=== PATIENT | male | born 1935 | race Caucasian/White ===

== ENCOUNTER 2018-05-08 15:14 | Inpatient (IN) ==
[2018-05-08 20:54] LABS: Baso # (Auto) 0.1 th/mm3 (0.0-0.2); Baso % (Auto) 0.7 % (0.0-2.0); Eos # (Auto) 0.1 th/mm3 (0.0-0.4); Eos % (Auto) 1.3 % (0.0-4.0); Hematocrit 36.5 % (39.0-51.0); Hemoglobin 12.4 gm/dL (13.0-17.0); Lymph # (Auto) 0.9 th/mm3 (1.0-4.8); Mean Corpuscular Hemoglobin 34.1 pg (27.0-34.0); Mean Corpuscular Volume 100.2 fL (80.0-100.0); Mean Platelet Volume 7.4 fL (7.0-11.0); Mono # (Auto) 0.5 th/mm3 (0.0-0.9); Mono % (Auto) 4.7 % (0.0-8.0); Neut # (Auto) 8.9 th/mm3 (1.8-7.7); Neut % (Auto) 84.3 % (16.0-70.0); Platelet Count 298 th/mm3 (150-450); Red Blood Count 3.65 mil/mm3 (4.50-5.90); Red Cell Distribution Width 15.3 % (11.6-17.2); White Blood Count 10.5 th/mm3 (4.0-11.0)
--- NOTE | 2018-05-08 21:02 | XR ---
EXAM DATE: 05/08/2018 8:33 PM EDT AGE/SEX: 82 years / Male INDICATIONS: . Chest pain. CLINICAL DATA: This is the patient's subsequent encounter. Patient reports that signs and symptoms h ave been present for 3 days and indicates a pain score of 7/10. MEDICAL/SURGICAL HISTORY: Cardiovascular disease. CABG. Pacemaker. COMPARISON: No prior exams available for comparison. FINDINGS: A single AP view of the chest demonstrates the lungs to be symmetrically aerated without evidence of mass, infiltrate or effusion. The heart is moderately enlarged. Evidence of prior median sternotomy. Cardiac pacer with bipolar leads in place.. Osseous structures are intact. CONCLUSION: Cardiomegaly without radiographic evidence of congestive failure. No infiltrates seen. Electronically signed by: Evan Rodriguez MD 05/08/2018 9:00 PM EDT
[2018-05-08 21:09] LABS: Anion Gap 9 meq/L (5-15); Aspartate Aminotransferase 11 U/L (15-37); Blood Urea Nitrogen 30 mg/dL (7-18); Calcium 8.1 mg/dL (8.5-10.1); Carbon Dioxide 22.6 meq/L (21.0-32.0); Chloride 108 meq/L (98-107); Glomerular Filtration Rate 42 mL/min (>89); Glucose,Random 103 mg/dL (74-106); Magnesium 2.5 mg/dL (1.5-2.5); Potassium 4.5 meq/L (3.5-5.1); Sodium 140 meq/L (136-145)
[2018-05-08 21:10] LABS: Alanine Aminotransferase 12 U/L (12-78)
[2018-05-08 21:14] LABS: Alkaline Phosphatase 126 U/L (45-117); Total Protein 6.9 g/dL (6.4-8.2)
[2018-05-08 21:15] LABS: Activated Partial Thrombo Time 28.2 sec (24.3-30.1); Prothrombin Time 10.3 sec (9.8-11.6)
[2018-05-08] MEDS ORDERED: Sodium Chlor 0.9% Inj 250 ML IV.SIG ONE (21:22)
[2018-05-08 21:23] LABS: Creatine Kinase 84 U/L (39-308)
--- NOTE | 2018-05-08 21:44 | ED ---
HPI General Chief complaint: Recheck/Abnormal Lab/Rx Stated complaint: Poss CHF/Phy Sent Time Seen by Provider: 05/08/18 20:03 Source: patient and family Mode of arrival: wheelchair Limitations: no limitations History of Present Illness HPI narrative: 82-year-old male the presents to the ED for evaluation of dizziness and low blood pressure. Patient apparently was recently admitted to a different hospital. Apparently patient was admitted because of his dizziness and allegedly his the fibular have been going off multiple times. Patient allegedly had CPR done and was admitted to [facility]. Discharged with instructions to follow up with radio installer [employer]. patient has an appointment with Dr Aparicio to check his pacemaker and defibrillator as apparently he could need a new lead. His appoitnment is on tuesday. Patient states having chest pain since having had the CPR which he attributes to broken bones from the CPR. Per patient has been having worsening dizziness and hypotension since released from the hospital. Today symptoms worsen to the point he almost lost consciousness like the last time that put him on the hospital. Currently denies any pain or SOB. no abdominal pain. No N/V/D. Related Data Allergies Allergy/AdvReac Type Severity Reaction Status Date / Time No Known Allergies Allergy Severe Uncoded 05/23/07 15:12 Review of Systems ROS Unobtainable All other systems reviewed negative except as stated in HPI [facility] Medical History Medical History Pacemaker (Acute) Social History Social History Substance History: No History of Abuse Smoking Status: Heavy tobacco smoker Tobacco Type: Cigarettes How Often Do You Have a Drink Containing Alcohol: Never Recent Travel in [place] within the Last 8 Weeks: No Recent Out of Country Travel within the Last 8 Weeks: No Immunization History Tetanus Immunization: <5 Years Hx Influenza Vaccine This Season: Yes Exam Narrative Exam Narrative: GENERAL: Well-appearing but very anorexic SKIN: Focused skin assessment warm/dry. HEAD: Atraumatic. Normocephalic. EYES: Pupils equal and round. No scleral icterus. No injection or drainage. ENT: No nasal bleeding or discharge. Mucous membranes pink and moist. Tongue is midline. No uvula deviation. NECK: Trachea midline. No JVD. CARDIOVASCULAR: Regular rate and rhythm. No murmur appreciated. RESPIRATORY: No accessory muscle use. Clear to auscultation. Breath sounds equal bilaterally. GASTROINTESTINAL: Abdomen soft, non-tender, nondistended. Hepatic and splenic margins not palpable. MUSCULOSKELETAL: No obvious deformities. No clubbing. No cyanosis. No edema. Full range of motion of the upper and lower extremities bilaterally. 2+ pulses bilaterally. NEUROLOGICAL: Awake and alert. No obvious cranial nerve deficits. Motor grossly within normal limits. Normal speech. PSYCHIATRIC: Appropriate mood and affect; insight and judgment normal. Course Initial Documented Vital Signs Temperature 97.7 F 05/08/18 15:44 Pulse Rate 70 05/08/18 15:44 Respiratory Rate 16 05/08/18 15:44 Blood Pressure 90/55 L 05/08/18 15:44 Pulse Oximetry 97 05/08/18 15:44 Last Documented Vital Signs Temperature 97.7 F 05/08/18 15:44 Pulse Rate 69 05/08/18 20:31 Respiratory Rate 16 05/08/18 15:44 Blood Pressure 90/55 L 05/08/18 15:44 Pulse Oximetry 98 05/08/18 20:32 Medical Decision Making MDM Narrative Medical decision making narrative: 82-year-old male the presents to the ED for evaluation of dizziness and low blood pressure. Patient was properly examined and was found to have signs and symptoms of unclear etiology. Patient was found to be slightly hypotensive in triage and systolic in the 90s. He is very symptomatic with just standing. 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 Atwood as well as Dr. Randall for further evaluation of the pacemaker. Patient currently denies any other symptoms other feeling very dizzy. Labs and imaging were ordered. Case discussed with my attending Dr. Golden who agrees with plan. Labs and imaging came back essentially negative. patient very symptomatic with standing. unclear etiology but concern for cardiac versus medication side effect. My attending recommends admission. Dr Garland agreed to admission. 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 Lab Data Lab results reviewed: Yes I reviewed the patient's lab results. Lab results narrative: Troponin and CK-MB negative. BNP in the 200s Result diagrams: 05/08/18 20:25 05/08/18 20:25 Lab Results 05/08/18 05/08/18 05/08/18 Range/Units 20:25 20:25 20:25 WBC 10.5 (4.0-11.0) th/mm3 RBC 3.65 L (4.50-5.90) mil/mm3 Hgb 12.4 L (13.0-17.0) gm/dL Hct 36.5 L (39.0-51.0) % MCV 100.2 H (80.0-100.0) fL MCH 34.1 H (27.0-34.0) pg MCHC 34.0 (32.0-36.0) % RDW 15.3 (11.6-17.2) % Plt Count 298 (150-450) th/mm3 MPV 7.4 (7.0-11.0) fL Neut % (Auto) 84.3 H (16.0-70.0) % Lymph % (Auto) 9.0 (9.0-44.0) % [place] % (Auto) 4.7 (0.0-8.0) % Eos % (Auto) 1.3 (0.0-4.0) % Baso % (Auto) 0.7 (0.0-2.0) % Neut # (Auto) 8.9 H (1.8-7.7) th/mm3 Lymph # (Auto) 0.9 L (1.0-4.8) th/mm3 [place] # (Auto) 0.5 (0.0-0.9) th/mm3 Eos # (Auto) 0.1 (0.0-0.4) th/mm3 Baso # (Auto) 0.1 (0.0-0.2) th/mm3 WBC Differential . Differential Comment Auto diff final PT 10.3 (9.8-11.6) sec INR 1.0 Ratio APTT 28.2 (24.3-30.1) sec Sodium (136-145) meq/L Potassium (3.5-5.1) meq/L Chloride (98-107) meq/L Carbon Dioxide (21.0-32.0) meq/L Anion Gap (5-15) meq/L BUN (7-18) mg/dL Creatinine (0.60-1.30) mg/dL Estimated GFR (>89) mL/min Random Glucose (74-106) mg/dL Calcium (8.5-10.1) mg/dL Magnesium Cancelled Total Bilirubin (0.2-1.0) mg/dL AST (15-37) U/L ALT (12-78) U/L Alkaline Phosphatase (45-117) U/L Total Creatine Kinase Cancelled Troponin I Cancelled B-Natriuretic Peptide (0-100) pg/mL Total Protein (6.4-8.2) g/dL Albumin (3.4-5.0) g/dL 05/08/18 05/08/18 Range/Units 20:25 20:25 WBC (4.0-11.0) th/mm3 RBC (4.50-5.90) mil/mm3 Hgb (13.0-17.0) gm/dL Hct (39.0-51.0) % MCV (80.0-100.0) fL MCH (27.0-34.0) pg MCHC (32.0-36.0) % RDW (11.6-17.2) % Plt Count (150-450) th/mm3 MPV (7.0-11.0) fL Neut % (Auto) (16.0-70.0) % Lymph % (Auto) (9.0-44.0) % [place] % (Auto) (0.0-8.0) % Eos % (Auto) (0.0-4.0) % Baso % (Auto) (0.0-2.0) % Neut # (Auto) (1.8-7.7) th/mm3 Lymph # (Auto) (1.0-4.8) th/mm3 [place] # (Auto) (0.0-0.9) th/mm3 Eos # (Auto) (0.0-0.4) th/mm3 Baso # (Auto) (0.0-0.2) th/mm3 WBC Differential Differential Comment PT (9.8-11.6) sec INR Ratio APTT (24.3-30.1) sec Sodium 140 (136-145) meq/L Potassium 4.5 (3.5-5.1) meq/L Chloride 108 H (98-107) meq/L Carbon Dioxide 22.6 (21.0-32.0) meq/L Anion Gap 9 (5-15) meq/L BUN 30 H (7-18) mg/dL Creatinine 1.59 H (0.60-1.30) mg/dL Estimated GFR 42 L (>89) mL/min Random Glucose 103 (74-106) mg/dL Calcium 8.1 L (8.5-10.1) mg/dL Magnesium 2.5 Total Bilirubin 0.3 (0.2-1.0) mg/dL AST 11 L (15-37) U/L ALT 12 (12-78) U/L Alkaline Phosphatase 126 H (45-117) U/L Total Creatine Kinase 84 Troponin I Less than 0.02 L B-Natriuretic Peptide 295 H (0-100) pg/mL Total Protein 6.9 (6.4-8.2) g/dL Albumin 3.0 L (3.4-5.0) g/dL Imaging Data Attestation: I personally reviewed and interpreted this imaging study as follows : Radiologist's impression: Chest X-Ray 05/08/18 20:16 CONCLUSION: Cardiomegaly without radiographic evidence of congestive failure. No infiltrates seen. Head CT 05/08/18 21:21 CONCLUSION: 1. No acute findings in the brain. 2. Right maxillary sinus disease including air-fluid level, suggesting acute sinusitis. ECG Data Attestation: I personally reviewed and interpreted this ECG as follows: Interpretation: EKG showed ventricular and atrial paced rhythm with no sign of acute ischemia or arrhythmia read by me and attending. Ventricular rate at 69 bpm. Discharge Plan Discharge Disposition Patient Disposition: 30 Still Patient Discharge Details Diagnosis: Near syncope, Dizziness Physicians Team ED Provider: Zara Golden ED Midlevel Provider: Romaine Schultz Primary Care Provider: Cyril Gabriel Discharge Interventions Interventions: Vital Signs Last Done: 05/08/18 15:44 Status ED Status: With Doctor
--- NOTE | 2018-05-08 22:32 | CT ---
EXAM DATE: 05/08/2018 10:14 PM EDT AGE/SEX: 82 years / Male INDICATIONS: Dizziness, low blood pressure. CLINICAL DATA: This is the patient's initial encounter. Patient reports that signs and symptoms have been present for 1 day and indicates a pain score of 0/10. MEDICAL/SURGICAL HISTORY: Cardiovascular disease. Pacemaker. RADIATION DOSE: 36.76 CTDI (mGy) COMPARISON: No prior exams available for comparison. TECHNIQUE: CT of the head without contrast. Using automated exposure control and adjustment of the mA and/or kV according to patient size, radiation dose was kept as low as reasonably achievable to ob tain optimal diagnostic quality images. DICOM format image data is available electronically for revi ew and comparison. FINDINGS: Cerebrum: The ventricles are normal for age. No evidence of midline shift, mass lesion, hemorrhage or acute infarction. Physiologic calcification in the basal ganglia. No extraaxial fluid collections are seen. Posterior Fossa: The cerebellum and brainstem are intact. The 4th ventricle is midline. The cerebe llopontine angle is unremarkable. Extracranial: The visualized portion of the orbits is intact. Mucosal thickening and air-fluid level in the right maxillary sinus. Skull: The calvaria is intact. No evidence of skull fracture. CONCLUSION: 1. No acute findings in the brain. 2. Right maxillary sinus disease including air-fluid level, suggesting acute sinusitis. Electronically signed by: Evan Rodriguez MD 05/08/2018 10:31 PM EDT
--- NOTE | 2018-05-08 23:50 | P.HPIM ---
History of Present Illness Primary Care Physician: Cyril Gabriel Chief Complaint: dizziness History of Present Illness: 82-year-old male with a history of CAD, hypertension, BPH, hypothyroidism presented to the ED with complaints of dizziness and low blood pressure. Patient states 1 week ago he was admitted to [facility] for a cardiac arrest and at this time he was told there was an issue with his pacemaker leads. He was set to follow-up with Dr. Aparicio outpatient for a pacemaker revision within the next 2 days but today he felt increasingly weak with dizziness and experienced low blood pressure at home. He did not take his Entresto today due to his low blood pressure. He does complain of associated chest pressure that is worse with palpation, denies any shortness of breath, fever or chills. He states the dizziness is increased when he goes from a sitting to standing position. - Diagnosis (1) Near syncope (2) Dizziness Inpatient Certification: I certify that the inpatient services were ordered in accordance with Medicare regulations governing the order. This includes certification that hospital inpatient services are reasonable and necessary and in the case of services not specified as inpatient-only under 42 CFR 419.22(n), that they are appropriately provided as inpatient services in accordance to with the 2-midnight benchmark under 43 CFR 412.3(e) [facility] - History History Provided By: Patient - Medical History Medical History: Medical History (Last Updated 05/09/18 @ 03:55 by OSMAN Valdez) BPH (benign prostatic hyperplasia) Coronary artery disease Hypertension Hypothyroid Pacemaker - Surgical History Surgical History: Surgical History (Last Updated 05/09/18 @ 03:55 by OSMAN Valdez) H/O hernia repair Hx of CABG S/P AAA repair - Tobacco History Tobacco Use In Past 30 Days: Yes Smoking Status: Current every day smoker Tobacco Type: Cigarettes - Alcohol History How Often Do You Have a Drink Containing Alcohol: Never - Substance Use History Substance History: No History of Abuse - Travel History Recent Travel in the [place] Within the Last 8 Weeks: No Recent Travel Out of the Country Within the Last 8 Weeks: No - Immunization History Tetanus Immunization: <5 Years Hx Influenza Vaccine This Season: Yes Medications and Allergies Allergies Allergy/AdvReac Type Severity Reaction Status Date / Time No Known Allergies Allergy Severe Uncoded 05/23/07 15:12 Home Medications Medication Instructions Recorded Confirmed Type amiodarone 200 mg PO BID 05/09/18 05/09/18 History cholecalciferol (vitamin D3) 5,000 unit PO DAILY 05/09/18 05/09/18 History [Vitamin D3] clopidogrel [Plavix] 75 mg PO DAILY 05/09/18 05/09/18 History cyanocobalamin (vitamin B-12) 5,000 mcg SUBLINGUAL DAILY 05/09/18 05/09/18 History [Vitamin B-12] ferrous sulfate [iron] 325 mg PO DAILY 05/09/18 05/09/18 History hydrocodone-acetaminophen 1 tab PO Q4H PRN 05/09/18 05/09/18 History ibuprofen 600 mg PO Q4-6H PRN 05/09/18 05/09/18 History levothyroxine 150 mcg PO DAILY 05/09/18 05/09/18 History multivitamin [Multiple Vitamins] 1 tab PO DAILY 05/09/18 05/09/18 History sacubitril-valsartan [Entresto] 1 tab PO BID 05/09/18 05/09/18 History simvastatin 80 mg PO HS 05/09/18 05/09/18 History trazodone 100 mg PO HS 05/09/18 05/09/18 History Exam Vital signs: Vital Signs 05/08/18 15:44 05/08/18 20:31 05/08/18 20:32 Temperature 97.7 F Pulse Rate 70 69 Respiratory Rate 16 Blood Pressure 90/55 L Pulse Oximetry 97 98 Intake & Output 05/08/18 05/08/18 05/09/18 06:59 18:59 06:59 Weight 55.792 kg - Constitutional no acute distress - Routine HEENT Exam Head: Present: normocephalic Eye: Present: EOMI, PERRL ENT: Present: mucous membranes moist, nares patent - Routine Neck Exam Present: supple, full ROM. Absent: JVD - Routine Chest/Breast/Axilla Exam Chest wall: Present: tenderness, pacemaker - Routine Respiratory Exam Absent: accessory muscle use, rales, wheezes, crackles - Routine Cardiovascular Exam Absent: murmur, rubs Comments: Atrial paced - Routine Abdominal Exam Present: soft, normoactive bowel sounds. Absent: tenderness, distended - Routine Extremities Exam Present: full ROM, pulses intact. Absent: edema - Routine Skin Exam Present: intact, warm, normal turgor - Routine Neurological Exam Present: alert, oriented X3 Results - Labs CBC & Chem 7: 05/09/18 05:35 05/09/18 05:35 Labs: Short CBC 05/08/18 Range/Units 20:25 WBC 10.5 (4.0-11.0) th/mm3 Hgb 12.4 L (13.0-17.0) gm/dL Hct 36.5 L (39.0-51.0) % Plt Count 298 (150-450) th/mm3 BMP 05/08/18 20:25 Sodium 140 Potassium 4.5 Chloride 108 H Carbon Dioxide 22.6 BUN 30 H Creatinine 1.59 H Calcium 8.1 L Cardiac Enzymes 05/08/18 05/08/18 Range/Units 20:25 20:25 Total Creatine Kinase Cancelled 84 Troponin I Cancelled Less than 0.02 L Liver Function 05/08/18 Range/Units 20:25 Total Bilirubin 0.3 (0.2-1.0) mg/dL AST 11 L (15-37) U/L ALT 12 (12-78) U/L Alkaline Phosphatase 126 H (45-117) U/L Albumin 3.0 L (3.4-5.0) g/dL - Imaging Impressions Chest X-Ray 05/08/18 20:16 CONCLUSION: Cardiomegaly without radiographic evidence of congestive failure. No infiltrates seen. Head CT 05/08/18 21:21 CONCLUSION: 1. No acute findings in the brain. 2. Right maxillary sinus disease including air-fluid level, suggesting acute sinusitis. Caprini VTE Risk Assessment Caprini VTE Risk Assessment: Moderate/High Risk (score >= 2) Caprini Risk Assessment Model: Point Value = 1 Point Value = 2 Point Value = 3 Point Value = 5 Age 41-60 Minor surgery BMI > 25 kg/m2 Swollen legs Varicose veins or History of unexplained or recurrent spontaneous Oral contraceptives or hormone replacement Sepsis (< 1 month) Serious lung disease, including pneumonia (< 1 month) Abnormal pulmonary function Acute myocardial infarction Congestive heart failure (< 1 month) History of inflammatory bowel disease Medical patient at bed rest Age 61-74 Arthroscopic surgery Major open surgery (> 45 min) Laparoscopic surgery (> 45 min) Malignancy Confined to bed (> 72 hours) Immobilizing plaster cast Central venous access Age >= 75 History of VTE Family history of VTE Factor V Leiden Prothrombin [id number] Lupus anticoagulant Anticardiolipin antibodies Elevated serum homocysteine Heparin-induced thrombocytopenia Other congenital or acquired thrombophilia Stroke (< 1 month) Elective arthroplasty Hip, pelvis, or leg fracture Acute spinal cord injury (< 1 month) Prophylaxis Regimen: Total Risk Factor Score Risk Level Prophylaxis Regimen 0-1 Low Early ambulation 2 Moderate Order ONE of the following: *Sequential Compression Device (SCD) *Heparin 5000 units SQ BID 3-4 Higher Order ONE of the following medications: *Heparin 5000 units SQ TID *Enoxaparin/Lovenox 40 mg SQ daily (WT < 150 kg, CrCl > 30 mL/min) *Enoxaparin/Lovenox 30 mg SQ daily (WT < 150 kg, CrCl > 10-29 mL/min) *Enoxaparin/Lovenox 30 mg SQ BID (WT < 150 kg, CrCl > 30 mL/min) AND/OR *Sequential Compression Device (SCD) 5 or more Highest Order ONE of the following medications: *Heparin 5000 units SQ TID (Preferred with Epidurals) *Enoxaparin/Lovenox 40 mg SQ daily (WT < 150 kg, CrCl > 30 mL/min) *Enoxaparin/Lovenox 30 mg SQ daily (WT < 150 kg, CrCl > 10-29 mL/min) *Enoxaparin/Lovenox 30 mg SQ BID (WT < 150 kg, CrCl > 30 mL/min) AND *Sequential Compression Device (SCD) Assessment and Plan - Assessment (1) Near syncope Code(s): R55 - Syncope and collapse Status: Acute (2) Dizziness Code(s): R42 - Dizziness and giddiness Status: Acute - Plan Near syncope, dizziness, suspect due to orthostatic hypotension, and pacemaker malfunction Troponin 0.02 -Orthostatic BP ordered -Consult cardiology, Dr. Aparicio -Serial troponin and EKGs -Request records from [facility] Acute kidney injury, suspect due to dehydration -IVF for hydration, monitor for fluid overload -Trend creatinine Hypertension, chronic, currently hypotensive -Hold all home medications for hypertension once med rec is updated -Monitor vitals DVT prophylaxis: Heparin SQ Discussed Condition With: Patient and RN
[2018-05-09] MEDS ORDERED: Acetaminophen 325 MG Tablet PO PRN (00:21)
[2018-05-09] MEDS: Sod Chloride 0.9% Inj 1,000 ML IV.CONT SCH ×2 (01:25→16:13)
[2018-05-09] MEDS: Heparin - SQ 10,000 UNITS/ML Vial SQ SCH ×3 (05:55→23:20)
[2018-05-09 06:04] LABS: Hemoglobin 10.4 gm/dL (13.0-17.0); Mean Corpuscular HGB Conc 34.8 % (32.0-36.0); Mean Corpuscular Hemoglobin 34.8 pg (27.0-34.0); Mean Platelet Volume 7.3 fL (7.0-11.0); Platelet Count 267 th/mm3 (150-450); White Blood Count 7.9 th/mm3 (4.0-11.0)
[2018-05-09 06:23] LABS: Carbon Dioxide 22.2 meq/L (21.0-32.0); Potassium 4.6 meq/L (3.5-5.1)
[2018-05-09 06:28] LABS: Troponin I 0.02 ng/mL (0.02-0.05)
[2018-05-09 06:35] LABS: Total Protein 5.7 g/dL (6.4-8.2)
[2018-05-09 11:44] LABS: Creatine Kinase 68 U/L (39-308)
--- NOTE | 2018-05-09 12:08 | P.PNIM ---
Subjective Interval history: Patient reports that lightheadedness continues, worse with standing. Denies any nausea or vomiting. Reports that dull chest pain continues. Physical Exam Vital signs: Vital Signs 05/08/18 15:44 05/08/18 20:31 05/08/18 20:32 Temperature 97.7 F Pulse Rate 70 69 Respiratory Rate 16 Blood Pressure 90/55 L Pulse Oximetry 97 98 05/09/18 04:23 05/09/18 07:56 05/09/18 07:57 Temperature 98.3 F 98.5 F Pulse Rate 71 70 Respiratory Rate 16 20 Blood Pressure 114/75 127/77 119/78 Pulse Oximetry 95 05/09/18 07:58 05/09/18 08:00 Temperature 98.5 F Pulse Rate Respiratory Rate 20 Blood Pressure 118/82 127/77 Pulse Oximetry 94 L Intake & Output 05/08/18 05/09/18 05/09/18 18:59 06:59 18:59 Weight 55.792 kg Narrative: GENERAL: Patient sitting up in bed. Appears comfortable. SKIN: Warm and dry. HEAD: Normocephalic. EYES: No scleral icterus. No injection or drainage. No nystagmus. NECK: Supple, trachea midline. No JVD. CARDIOVASCULAR: Regular rate and rhythm without murmurs, gallops, or rubs. RESPIRATORY: Breath sounds equal bilaterally. No accessory muscle use. GASTROINTESTINAL: Abdomen soft, non-tender, nondistended. MUSCULOSKELETAL: No cyanosis, or edema. BACK: Nontender without obvious deformity. No CVA tenderness. Results - Labs CBC & Chem 7: 05/09/18 05:35 05/09/18 05:35 Laboratory Results - last 24 hr 05/08/18 05/08/18 05/08/18 20:25 20:25 20:25 WBC 10.5 RBC 3.65 L Hgb 12.4 L Hct 36.5 L MCV 100.2 H MCH 34.1 H MCHC 34.0 RDW 15.3 Plt Count 298 MPV 7.4 Neut % (Auto) 84.3 H Lymph % (Auto) 9.0 [place] % (Auto) 4.7 Eos % (Auto) 1.3 Baso % (Auto) 0.7 Neut # (Auto) 8.9 H Lymph # (Auto) 0.9 L [place] # (Auto) 0.5 Eos # (Auto) 0.1 Baso # (Auto) 0.1 WBC Differential . Differential Comment Auto diff final PT 10.3 INR 1.0 APTT 28.2 Sodium Potassium Chloride Carbon Dioxide Anion Gap BUN Creatinine Estimated GFR Random Glucose Calcium Prot Corrected Calcium Magnesium Cancelled Total Bilirubin AST ALT Alkaline Phosphatase Total Creatine Kinase Cancelled Troponin I Cancelled B-Natriuretic Peptide Total Protein Albumin 05/08/18 05/08/18 05/09/18 20:25 20:25 05:35 WBC RBC Hgb Hct MCV MCH MCHC RDW Plt Count MPV Neut % (Auto) Lymph % (Auto) [place] % (Auto) Eos % (Auto) Baso % (Auto) Neut # (Auto) Lymph # (Auto) [place] # (Auto) Eos # (Auto) Baso # (Auto) WBC Differential Differential Comment PT INR APTT Sodium 140 Potassium 4.5 Chloride 108 H Carbon Dioxide 22.6 Anion Gap 9 BUN 30 H Creatinine 1.59 H Estimated GFR 42 L Random Glucose 103 Calcium 8.1 L Prot Corrected Calcium Magnesium 2.5 Total Bilirubin 0.3 AST 11 L ALT 12 Alkaline Phosphatase 126 H Total Creatine Kinase 84 69 Troponin I Less than 0.02 L 0.02 B-Natriuretic Peptide 295 H Total Protein 6.9 Albumin 3.0 L 05/09/18 05/09/18 05/09/18 05:35 05:35 10:38 WBC 7.9 RBC 3.00 L Hgb 10.4 L D Hct 30.0 L MCV 100.0 MCH 34.8 H MCHC 34.8 RDW 15.0 Plt Count 267 MPV 7.3 Neut % (Auto) Lymph % (Auto) [place] % (Auto) Eos % (Auto) Baso % (Auto) Neut # (Auto) Lymph # (Auto) [place] # (Auto) Eos # (Auto) Baso # (Auto) WBC Differential Differential Comment PT INR APTT Sodium 142 Potassium 4.6 Chloride 112 H Carbon Dioxide 22.2 Anion Gap 8 BUN 27 H Creatinine 1.43 H Estimated GFR 48 L Random Glucose 80 Calcium 7.0 L* D Prot Corrected Calcium 7.7 L Magnesium Total Bilirubin AST ALT Alkaline Phosphatase Total Creatine Kinase 68 Troponin I Less than 0.02 L B-Natriuretic Peptide Total Protein 5.7 L D Albumin - Imaging Impressions Chest X-Ray 05/08/18 20:16 CONCLUSION: Cardiomegaly without radiographic evidence of congestive failure. No infiltrates seen. Head CT 05/08/18 21:21 CONCLUSION: 1. No acute findings in the brain. 2. Right maxillary sinus disease including air-fluid level, suggesting acute sinusitis. Assessment and Plan - Assessment (1) Near syncope Code(s): R55 - Syncope and collapse Status: Acute (2) Dizziness Code(s): R42 - Dizziness and giddiness Status: Acute - Plan //Near syncope, dizziness, suspect due to orthostatic hypotension, and pacemaker malfunction Troponin 0.02 -Orthostatic BP orderedunremarkable -Consult cardiology, Dr. Aparicio -Serial troponin and EKGs -Request records from [facility] = Pacemaker interrogation ordered. Outside records ordered. Await cardiology evaluation. PT eval. //Acute kidney injury, suspect due to dehydration -IVF for hydration, monitor for fluid overload -Trend creatinine = Patient reportedly on ibuprofen 600 mg every 6 hours. Will discontinue. 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 Pending PT evaluation.
--- NOTE | 2018-05-09 14:03 | US ---
EXAM DATE: 05/09/2018 1:46 PM EDT AGE/SEX: 82 years / Male INDICATIONS: Near syncope. Orthostatic lightheadedness. CLINICAL DATA: This is the patient's initial encounter. Patient reports that signs and symptoms have been present for 2 days and indicates a pain score of 0/10. MEDICAL/SURGICAL HISTORY: Hypertension. Hypothyroidism. Benign prostatic hyperplasia. Coronary artery disease. Pacemaker. CABG. Hernia repair. Abdominal aortic aneurysm repair. Pacemaker placeme nt. COMPARISON: No prior exams available for comparison. VELOCITY PARAMETERS: ICA/CCA Ratio: Right 1.0 , Left 1.7 ICA: Right 81 cm/sec, Left 107 cm/sec CCA: Right 81 cm/sec, Left 63 cm/sec ECA: Right 89 cm/sec, Left 106 cm/sec Vertebral: Right 36 cm/sec antegrade, Left 52 cm/sec antegrade FINDINGS: Right Carotid: Extensive atherosclerotic plaquing is visualized.The waveforms are within normal limi ts. Left Carotid: Extensive arteriosclerotic plaque is visualized. The waveforms are within normal limit s. Other: None. CONCLUSION: 1. Right Internal Carotid Artery: Extensive atherosclerotic plaquing. No hemodynamically significa nt stenosis is identified. 2. Left Internal Carotid Artery: Extensive atherosclerotic plaquing. Velocities would suggest stenos is less than 50% at the bifurcation. Electronically signed by: Efren Barr MD 05/09/2018 2:01 PM EDT
--- NOTE | 2018-05-09 20:54 | ECG ---
Date Performed: 05/08/2018 Time Performed: 20:10:52 PTAGE: 82 years EKG: ELECTRONIC ATRIAL PACEMAKER ELECTRONIC VENTRICULAR PACEMAKER ABNORMAL RHYTHM ECG PREVIOUS TRACING : 12/23/2003 06.24 When compared with prior paced rhythm is new DOCTOR: Rozina Lopez Interpretating Date/Time 05/09/2018 20:54:23
[2018-05-09] MEDS ORDERED: Amiodarone 200 MG Tablet PO SCH (21:00)
[2018-05-10] MEDS: Heparin - SQ 10,000 UNITS/ML Vial SQ SCH ×3 (06:00→21:03)
[2018-05-10] MEDS: Levothyroxine 150 MCG Tablet PO SCH (06:00)
--- NOTE | 2018-05-10 09:09 | MB ---
cc: Joyce Aparicio MD, Jeffrey D MD DATE: 05/10/2018 REASON FOR CONSULTATION: Shortness of breath, heart failure. HISTORY OF PRESENT ILLNESS: Mr. Campos is an 82-year-old gentleman with a history of coronary artery disease, coronary artery bypass grafting. He had a previous defibrillator implanted around 2-3 years ago. This gentleman has an ejection fraction of around 15%. He is on optimal medical treatment. He had a recent hospitalization at [facility] admitted through the emergency room due to shortness of breath. I was consulted for evaluation and management. The chart was reviewed. The patient was evaluated. ALLERGIES: None. SOCIAL HISTORY: Negative for smoking and drinking. FAMILY HISTORY: Noncontributory to his current medical condition. MEDICATIONS: 1. He is on Gypsum. 2. He is on amiodarone 200 mg twice a day. 3. He is on Lipitor 40 mg at bedtime. 4. He is on Levoxyl 150 mcg a day. 5. He is on Zofran. 6. He is on Entresto one twice a day. REVIEW OF SYSTEMS: He refers feeling shortness of breath and tiredness, but no fever. PHYSICAL EXAMINATION: GENERAL: Alert, fully oriented. VITAL SIGNS: Blood pressure is 122/78, pulse 72, respiratory rate 18. LUNGS: Ventilated. CARDIOVASCULAR: S1, S2. No gallop. No murmur. ABDOMEN: Soft. No mass. No bruit. EXTREMITIES: No edema. Electrocardiogram AV sequential pacing. LABORATORY: Hemoglobin 10.4, white blood cell 7.9. INR 1.0. Potassium 4.6, creatinine 1.43. Troponin less than 0.02. BNP 295. ASSESSMENT AND RECOMMENDATIONS: Mr. Campos has shortness of breath. He is RV pacing. Ejection fraction is 15%. Recent hospitalization, he had severe hypotension. This is why beta blaine was discontinued. He is on Entresto and amiodarone. Amiodarone has better effect also. A had a long discussion with this gentleman. I discussed the case with Dr. Atwood over the phone and his records from [facility] in the office were reviewed. My recommendation is to continue with current management. I am going to decrease the amiodarone to 200 mg once a day. The defibrillator needs to be upgraded to a biventricular pacer defibrillator. The risk, the nature and the benefits of the procedure were clearly stated to him. The risks include pneumothorax, cardiac perforation, stroke and even . He understood and agreed to proceed. Procedure will be performed. This gentleman is class III heart failure. Joyce Aparicio MD HS/DL , 08:30 AM , 09:08 AM
--- NOTE | 2018-05-10 10:13 | P.PNIM ---
Subjective Interval history: Patient says he is feeling right. Denies any chest pain shortness of breath. Denies nausea vomiting. Physical Exam Vital signs: Vital Signs 05/09/18 12:00 05/09/18 20:00 05/09/18 20:38 Temperature 98.1 F 98.6 F Pulse Rate 70 74 Respiratory Rate 18 16 18 Blood Pressure 114/68 118/72 Pulse Oximetry 93 L 05/09/18 21:08 05/10/18 00:04 05/10/18 04:00 Temperature 98.0 F 98.7 F Pulse Rate 70 70 Respiratory Rate 18 18 16 Blood Pressure 123/73 137/73 Pulse Oximetry 95 91 L 05/10/18 06:10 05/10/18 08:00 05/10/18 08:08 Temperature 97.7 F Pulse Rate 70 72 Respiratory Rate 18 16 Blood Pressure 135/80 123/78 Pulse Oximetry 95 96 05/10/18 08:09 Temperature Pulse Rate 71 Respiratory Rate Blood Pressure 127/82 Pulse Oximetry 94 L Intake & Output 05/09/18 05/10/18 05/10/18 18:59 06:59 18:59 Intake Total 1000 / 1000 Balance 1000 / 1000 Intake: IV 1000 / 1000 NS Inj 1,000 ML @ 75 mls/hr IV. 1000 / 1000 CONT .[id number] [facility] Rx#:[id number] Narrative: GENERAL: Patient sleeping, wakes up for exam. Appears comfortable. SKIN: Warm and dry. HEAD: Normocephalic. EYES: No scleral icterus. No injection or drainage. No nystagmus. NECK: Supple, trachea midline. No JVD. CARDIOVASCULAR: Regular rate and rhythm without murmurs, gallops, or rubs. RESPIRATORY: Breath sounds equal bilaterally. No accessory muscle use. GASTROINTESTINAL: Abdomen soft, non-tender, nondistended. MUSCULOSKELETAL: No cyanosis, or edema. BACK: Nontender without obvious deformity. No CVA tenderness. Results - Labs CBC & Chem 7: 05/09/18 05:35 05/09/18 05:35 Laboratory Results - last 24 hr 05/09/18 10:38 Total Creatine Kinase 68 Troponin I Less than 0.02 L - Imaging Impressions Carotid Doppler Study 05/09/18 00:00 CONCLUSION: 1. Right Internal Carotid Artery: Extensive atherosclerotic plaquing. No hemodynamically significant stenosis is identified. 2. Left Internal Carotid Artery: Extensive atherosclerotic plaquing. Velocities would suggest stenosis less than 50% at the bifurcation. Assessment and Plan - Assessment (1) Near syncope Code(s): R55 - Syncope and collapse Status: Acute (2) Dizziness Code(s): R42 - Dizziness and giddiness Status: Acute - Plan //Near syncope, dizziness, suspect due to orthostatic hypotension, and pacemaker malfunction Troponin 0.02 -Orthostatic BP orderedunremarkable -Consult cardiology, Dr. Aparicio -Serial troponin and EKGs -Request records from [facility] = Pacemaker interrogation ordered. Outside records ordered. Await cardiology evaluation. PT eval. = Discussed with cardiology. Patient is for procedure today. //Acute kidney injury, suspect due to dehydration -IVF for hydration, monitor for fluid overload -Trend creatinine = Patient reportedly on ibuprofen 600 mg every 6 hours. Will discontinue. //Hypertension, chronic, currently hypotensive -Hold all home medications for hypertension once med rec is updated -Monitor vitals =continue medications as appropriate //Depression. Due to patient's complaint of lightheadedness, and its appearance of somnolence. Will decrease dose of trazodone. 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 Pending PT evaluation.
[2018-05-10] MEDS: Amiodarone 200 MG Tablet PO SCH (10:28)
[2018-05-10] MEDS ORDERED: Phenylephrine/NS 1000 MCG/10ML Syringe IV.PUSH ONE (12:00)
[2018-05-10] MEDS ORDERED: Glycopyrrolate Inj 1 MG/5 ML Syringe IV.PUSH ONE (12:00)
--- NOTE | 2018-05-10 15:23 | ECG ---
Date Performed: 05/09/2018 Time Performed: 13:12:22 PTAGE: 82 years EKG: ELECTRONIC ATRIAL PACEMAKER ELECTRONIC VENTRICULAR PACEMAKER ABNORMAL RHYTHM ECG NO PREVIOUS TRACING DOCTOR: Abdoul Dorsey Interpretating Date/Time 05/10/2018 15:22:17
[2018-05-10] MEDS ORDERED: fentaNYL Citrate Inj 100 MCG/2 ML Ampul ONE (16:43)
[2018-05-10] MEDS ORDERED: Sodium Chlor 0.9% Inj 250 ML ONE (16:45)
--- NOTE | 2018-05-10 18:32 | CATHPROC ---
Patient Name: Demarco Campos Study #: [id number] Initial MD: Joyce Arce Date of : 1935 Study Date: 05/10/2018 Cardiac Catheterization Report 05/10/2018 6:31:44 PM Financial #: [id number] 1 of 8 Patient Name: Demarco Campos Study #: [id number] Initial MD: Joyce Arce Date of : 1935 Study Date: 05/10/2018 Entire Case Report Patient Information Patient Name Demarco Campos Date of 1935 Age 82 years Financial # [id number] Gender M AlternateID Lab Number 2 Room Number F68 Height (in) 66.0 Height (cm) 167.6 BSA 1.63 Weight (lbs) 122.5 Weight (kg) 55.7 Patient Address/Phone Number Home Address [facility] Home Phone Number [phone] [phone] Study Information Study Number Admission Scheduled Start Study Start [id number] May 08 2018 10:35PM 05/10/2018 May 10 2018 4:28PM [place] [facility] Cardiac Pacer/ICD Admit Source Facility Department Emergency department [facility] - Auto Headlight Mechanic Physician and Clinical Staff Initial Joyce Gil Embalmer Assistant Susanna Jiménez,RT(R) TECH2 Other Anesthesia, BIOLOGIST Recorder Tona Walker,DEWAYNE Scrub Eliseo Dover,RT(R) Procedures Performed Procedure Location (Site) Vessel Name Wire insertion Subclav. Vein (Lft Subclavian Vein 05/10/2018 6:31:44 PM Financial #: [id number] 2 of 8 Patient Name: Demarco Campos Study #: [id number] Initial MD: Joyce Arce Date of : 1935 Study Date: 05/10/2018 Equipment Time Consulting Solution Manager Description Size Mfg Part Number Used/Scraped WIRE, GUIDE AMPLATZ STIFF [id number] 17:32 COOK/PACER 3MMJ Used 180CM *[id number] DERMABOND, ADHESIVE SKIN [id number] 17:01 CORDIS/PACER * Used GLUE MINI *[id number] WIRE, HYDROSTEER 150CM [id number] 17:20 DAIG/[employer] 150CM Used ANGLED GLIDE *[id number] 17:01 [employer] BLANKET,WARM AIR CCL * Used *[id number] TP-1103 17:01 [employer] SUTURE, STRIP PLUS 1/2" * Used *[id number] 17:01 [employer] PACER TAM, LIMB * 2530 *[id number] Used [id number] 17:01 [employer] PACER PACK, PACER CUSTOM * Used *[id number] 17:23 [employer] PACER SAFE SHEATH, FR9, 13CM FR 9 [id number] Used 17:07 Needle Sponge Count 2 22 Used 17:07 Needle Sponge Count 20 200 Used 17:07 Needle Sponge Count 3 3 Used SUTURE, 0 ETHIBOND [CT1] (CX21D), 8pk SUTURE, 2-0 VICRYL [CT1] ([id number]) SUTURE, 2-0 VICRYL [CT1] ([id number]) [id number] 17:23 [employer] LIVEWIRE, QUAD, MED SWEEP FR 6 Used *[id number] 105133 17:23 [employer] LIVEW[employer], QUAD, MED SWEEP FR 6 Used *[id number] [facility] PAD, ELECTROSURGICAL 17:01 * [id number] *[id number] Used SURGICAL GROUNDING ORANGE 18:10 [employer] DEFIBRILLATOR, VIVA XT AUDIO DIRECTOR-D DDE-DDDR [id number] Used 18:25 [employer] MONITOR, PACEMAKER\\ICD 46439 *[id number] Used [id number] 17:23 [employer] PLASMABLADE, PEAD 3.0S * Used *[id number] [id number] 17:01 [employer]. / * Used *14478 Equipment Model, Serial, Lot Number and Expiration Data Description Model Number Serial Number Lot Number Expiration Date DEFIBRILLATOR, VIVA XT AUDIO DIRECTOR-D [id number] 02-04-2019 Insurance Information Insurance Payor [facility], Private Health Insurance Third Constitution Party Third Constitution Party Number HUMANJustina LUCIO PPO HUMCRPPO 05/10/2018 6:31:44 PM Financial #: [id number] 3 of 8 Patient Name: Demarco Campos Study #: [id number] Initial MD: Joyce Arce Date of : 1935 Study Date: 05/10/20 18 History: Risk Factors Family History of Hypertension Dyslipidemia Previous ND Previous Heart Failure Premature CAD Yes Yes No No Yes Prior Valve Prior PCI Prior CABG Surgery No Yes Yes Cerebrovascular Peripheral Artery Chronic Lung On Dialysis Diabetes Disease Disease Disease No No No No No Labs Hgb (g/dl) Hct (%) WBC (l/cumm) Platelets (thousands) 11.60-17.00 35.00-51.00 4.00-11.00 150.00-450.00 10.4 30 7.9 267 Glucose (mg/dl) BUN (mg/dl) Creatinine (mg/dl) BUN:Creatinine (1:x) 74.00-106.00 7.00-18.00 0.50-1.30 10.00-20.00 80 27 1.4 19.3 Na (meq/l) K (meq/l) 136.00-145.00 3.50-5.10 142 4.6 CPK-MB (ng/ML) 0.50-3.60 Not Drawn Medication Medication Total Dose (Bolus/Oral) Medication Total Dosage/Unit 2% XYLOCAINE 50 mL Medications (Bolus/Oral) Medication Time Given Dosage/Unit Administered By Reason 2% XYLOCAINE 05/10/2018 5:16:30 PM 50 mL Joyce Arce 50 mL 2% XYLOCAINE given in lab by Joyce Arce in Left shoulder via Subcutaneous. LEFT UPPER CHEST Medication (Drip) Medication Time Given Dosage/Unit Concentration/Unit Diluent (ml) Solution ANCEF 05/10/2018 4:55:00 PM 2 g 2 g ANCEF given in lab by Anesthesia, BIOLOGIST via Peripheral IV. Ordered by Joyce Arce. VANCOMYCIN DRIP 05/10/2018 4:55:00 PM 1 g 1 g VANCOMYCIN DRIP given in lab by Anesthesia, BIOLOGIST via Peripheral IV. Ordered by Joyce Arce. 05/10/2018 6:31:44 PM Financial #: [id number] 4 of 8 Patient Name: Demarco Campos Study #: [id number] Initial MD: Joyce Arce Date of : 1935 Study Date: 05/10/2018 Initial Case Assessment Cardiovascular HR Rhythm NIBP Chest Pain 77 PACED 138/84 0 Edema Present Skin color Skin None Normal Warm Dry Circulatory - Right Pulses Dorsalis Pedis 1 Scale (0,1,2,3,4,d) Circulatory - Left Pulses Dorsalis Pedis 1 Scale (0,1,2,3,4,d) Neurological State Oriented to time-place- Alert Moves all extremities person Respiration - General Respiration Rate SpO2 (%) O2 (lpm) (B/min) 18 99 2 05/10/2018 6:31:44 PM Financial #: [id number] 5 of 8 Patient Name: Demarco Campos Study #: [id number] Initial MD: Joyce Arce Date of : 1935 Study Date: 05/10/2018 Final Case Assessment Cardiovascular HR Rhythm NIBP Chest Pain 70 PACED 104/57 0 Edema Present Skin color Skin None Normal Warm Dry Circulatory - Right Pulses Dorsalis Pedis 1 Scale (0,1,2,3,4,d) Circulatory - Left Pulses Dorsalis Pedis 1 Scale (0,1,2,3,4,d) Neurological State Oriented to time-place- Alert Moves all extremities person Respiration - General Respiration Rate SpO2 (%) O2 (lpm) (B/min) 18 96 4 Chronological Log Time Study Chronological Log 16:28:18 Patient arrived via Bed. 16:28:20 Patient Name, D.O.B, / Armband Verified By R.N. 16:28:21 Consent signed by the physician and the patient and verified by the Auto Headlight Mechanic staff. 16:28:22 Pre-op and post- op instructions given; patient acknowledges understanding of instructions. 16:28:24 Verbal Stimulation=2 Physical Stimulation=2 Airway=2 Respiration=2 TOTAL=8. (0=absent, 1=li mited, 2=present) 16:28:59 Anesthesia at bedside. Assumes care of patient. 16:29:13 Presedation assessment performed by Auto Headlight Mechanic RN. 16:29:15 Patient has been NPO for More than 6Hrs. 16:29:18 Skin Breakdown/bilateral arms bruising 16:29:40 Patient Warmer Placed on the Table. 16:29:42 Disposable Defibrillator Pads Placed On Patient. 16:29:44 Barbara Prominences Protected 05/10/2018 6:31:44 PM Financial #: [id number] 6 of 8 Patient Name: Demarco Campos Study #: [id number] Initial MD: Joyce Arce Date of : 1935 Study Date: 05/10/2018 16:55:00 2 g ANCEF given in lab by Anesthesia, BIOLOGIST via Peripheral IV. Ordered by Joyce Arce. 16:55:00 1 g VANCOMYCIN DRIP given in lab by Anesthesia, BIOLOGIST via Peripheral IV. Ordered by Scooby Acre. 17:05:31 A # 20 IV was noted in the Forearm (left). Grade = 0 17:05:49 History and physical on the chart or being dictated. Assessment: Initial Case, HR=77 BPM, Rhythm=PACED, HSKF=357/84 mmhg, Chest Pain=0, Edema=None, Color=Normal, Skin = Warm, Dry Right Pulses: Rigoberto Ped=1 17:05:50 Left Pulses: Rigoberto Ped=1 Neurological: State=Alert, Ox3, ALMODOVAR Respiration: Resp=18 B/min, SpO2=99 %, O2=2 lpm 17:05:53 Table restraints applied according to hospital policy 17:05:55 Right Upper Chest Prepped Times Two. 17:05:57 paged 17:06:05 Bovie ground pad applied to: RIGHT THIGH 17:06:11 2% CHLORHEXIDINE GLUCONATE WASH AND NASAL SWIPE DONE PRIOR TO PROCEDURE. First Sponge And Instrument Count Done by Eliseo Dover, RT(R). 17:06:14 Hypo's: 3, Sponges: 20, Bovie/scratch: 2 Sutures: 10, Blades: 1, Instruments: 26, Syveck Patches: 0 VERIFIED BY SUSANNA 17:08:13 MD responded Time Out. Correct patient, procedure, procedure equipment, site and side verified with physicia n present. Time 17:12:47 concurred by MD, individual staff and BIOLOGIST. Time Out #2 - Consents verified, patient in correct position, all results are labled and displa yed, safety precautions 17:12:52 taken, antibiotics administered. Time out concurred by MD, individual staff and BIOLOGIST in procedu re 17:12:53 Case Start 17:16:30 50 mL 2% XYLOCAINE given in lab by Joyce Arce in Left shoulder via Subcutaneous. LEFT UP PER CHEST 17:16:49 Surgical Incision Made. 17:16:56 A pocket was created at the L Upper Chest. 17:18:29 A device was explanted. 17:18:39 Vascular access was obtained in the Subclav. Vein (Lft. 17:19:09 A SAFE SHEATH, FR9, 13CM FR 9 was advanced into the Subclav. Vein (Lft using the Modified S eldinger technique. 17:20:39 A WIRE, HYDROSTEER 150CM ANGLED GLIDE 150CM was inserted via Subclav. Vein (Lft. A LIVEWIRE, QUAD, MED SWEEP FR 6 was advanced vis Subclav. Vein (Lft and placed in the CS. Plac ement was 17:23:36 visually confirmed under fluoroscopy. 17:25:37 Catheter was removed 17:25:44 SHEATH DIALATOR INSERTED 17:27:54 A WIRE, GUIDE AMPLATZ STIFF 180CM 3MMJ was inserted via Subclav. Vein (Lft. ATTEMPTED ACCESS MULTIPLE VESSEL OBSTRUCTIONS, CONSULT FOR EPICARD LEAD. DR ARCE NOTIFIED DY 18:07:51 KHANA 18:09:12 A DEFIBRILLATOR, VIVA XT AUDIO DIRECTOR-D DDE-DDDR was connected and placed in the pocket. 18:10:32 Pocket flushed with antibiotic solution 18:10:34 The pocket was closed. 18:10:39 Implant Procedure was performed. ATTEMPTED UPGRADE BIV PLACED AUDIO DIRECTOR DEVICE CONSULTED VASCULAR 05/10/2018 6:31:44 PM Financial #: [id number] 7 of 8 Patient Name: Demarco Campos Study #: [id number] Initial MD: Joyce Arce Date of : 1935 Study Date: 05/10/2018 18:11:13 A Bivent ICD Implant . (Dual) CONSULT FOR EPICARDIAL LEAD SECOND Sponge And Instrument Count Done by Eliseo Dover RT(R). 18:11:54 Hypo's: 3, Sponges: 20, Bovie/scratch: 2 Sutures: 10, Blades: 1, Instruments: 26, Syveck Patches: 0 VERIFIED BY SUSANNA 18:23:33 The pocket was closed. ELISEO ASSIST 18:23:44 Case End (Physician broke scrub) ( ELISEO BROKE SCRUB) 18:24:21 DOCU called. Spoke to JOSE ELIAS Assessment: Final Case, HR=70 BPM, Rhythm=PACED, VTAZ=710/57 mmhg, Chest Pain=0, Edema=None, Color=Normal, Skin = Warm, Dry Right Pulses: Rigoberto Ped=1 18:26:32 Left Pulses: Rigoberto Ped=1 Neurological: State=Alert, Ox3, ALMODOVAR Respiration: Resp=18 B/min, SpO2=96 %, O2=4 lpm 18:29:54 Sterile dressing applied to site 18:30:05 Steri-strips and a sterile dressing applied to site. 18:30:11 A sling was placed on the affected arm. 18:30:15 No case complications noted. 18:30:16 Cine recording checked. 18:30:18 Bedside Report will be given. 18:30:19 Implantable Device card placed in patient's chart. 18:30:25 Defibrillator and ground pads removed. Skin intact. 18:35:10 Patient moved to stretcher End Study - Contrast Media Used In Study Contrast Total Opened (mL) Total Used (mL) Total Wasted (mL) Omnipaque 20 20 0 End Study - Maximum Contrast Load Max Contrast Load (mL) 198.9 End Study - Radiation Exposure Fluoro Time (minutes) 17.3 End Study - Patient Disposition Complications Transferred To Interventional Outcome No Telemetry Bed successful 05/10/2018 6:31:44 PM Financial #: [id number]
[2018-05-10] MEDS: traZODone 50 MG Tablet PO SCH (21:04)
--- NOTE | 2018-05-10 21:30 | XR ---
EXAM DATE: 05/10/2018 9:20 PM EDT AGE/SEX: 82 years / Male INDICATIONS: . Post op pacemaker replacement CLINICAL DATA: This is the patient's initial encounter. Patient reports that signs and symptoms have been present for 1 day and indicates a pain score of 5/10. MEDICAL/SURGICAL HISTORY: Cardiovascular disease. CABG. [place] [facility] [place]. . FINDINGS: The heart is enlarged, similar to prior. There is consolidation in the retrocardiac lower lobe with a ir bronchograms and loss of delineation of the medial left hemidiaphragm; this is a new finding from prior exam. The right lung is clear. No evidence of pneumothorax. Evidence of prior median sternotomy with intact sternal wire sutures. Cardiac pacer leads project over the right atrium and right ventri eun. CONCLUSION: 1. No evidence of pneumothorax. 2. There is new consolidation in the left lower lung. Electronically signed by: Evan Rodriguez MD 05/10/2018 9:29 PM EDT
[2018-05-11] MEDS: ceFAZolin 2 GM Premix Inj 2 GM/50 ML PIGGYBACK IV.SIG SCH ×3 (02:38→16:42)
[2018-05-11] MEDS: Levothyroxine 150 MCG Tablet PO SCH (05:16)
[2018-05-11] MEDS: Amiodarone 200 MG Tablet PO SCH (09:04)
[2018-05-11] MEDS ORDERED: Sodium Chloride 0.9% Irr Bot 500 ML, ceFAZolin Inj 500 MG IRRIGATION SCH ×2 (10:00)
[2018-05-11] MEDS ORDERED: ceFAZolin Inj 2,000 MG in Sodium Chlor 0.9% Inj 80 ML IV.SIG SCH (10:00)
[2018-05-11] MEDS ORDERED: Chlorhexidine 4% Topical 120 APPLIC/120 ML Bottle TOPICAL SCH (10:00)
[2018-05-11] MEDS ORDERED: ceFAZolin 2 GM IV; once IV.SIG SCH (10:15)
--- NOTE | 2018-05-11 13:38 | P.PNCA ---
- Note Subjective/Hospital Course: pt seen and evaluated / full consult to follow for epicardial lead placement in am Med[employer] rep Albert Sena notified Objective: Vital Signs - 24 hr 05/10/18 20:00 05/11/18 00:00 05/11/18 00:11 Temperature 97.6 F 98.0 F Pulse Rate 69 70 70 Respiratory Rate 20 18 Blood Pressure 86/59 L 86/62 L Pulse Oximetry 97 98 05/11/18 01:11 05/11/18 02:11 05/11/18 02:47 Temperature Pulse Rate 69 69 Respiratory Rate 16 Blood Pressure Pulse Oximetry 05/11/18 03:00 05/11/18 04:00 05/11/18 04:46 Temperature 98.1 F Pulse Rate 69 70 Respiratory Rate 16 18 Blood Pressure 100/63 Pulse Oximetry 99 05/11/18 05:00 05/11/18 06:00 05/11/18 07:00 Temperature Pulse Rate 69 70 69 Respiratory Rate Blood Pressure Pulse Oximetry 05/11/18 07:46 Temperature 97.8 F Pulse Rate 69 Respiratory Rate 24 Blood Pressure 92/68 L Pulse Oximetry 95 Labs: Laboratory Results - last 12 hr 05/11/18 11:35 Blood Type A Positive Blood Type Recheck Required Antibody Screen Negative MTS Gel Crossmatch See Detail Result Diagrams: 05/09/18 05:35 05/09/18 05:35
--- NOTE | 2018-05-11 13:55 | MB ---
cc: Luciana Bowen DATE: 05/11/2018 HISTORY OF PRESENT ILLNESS: This is an 82-year-old male with history of coronary artery disease, prior history of coronary artery bypass grafting, had apparently a previous defibrillator implanted 2-3 years ago, EF of 15%, on good medical therapy, recent hospitalization at [facility] for shortness of breath. The patient was then transferred to our facility. The patient underwent replacement of the Medtronic device; however, they were unable to place a coronary sinus lead Medtronic device. We were consulted to evaluate for placement of epicardial lead via a left thoracotomy approach. Apparently, the patient had some type of cardiac arrest and was told that there was a problem with his pacemaker leads. Therefore, he was transferred to our facility. PAST MEDICAL HISTORY: Benign prostatic hypertrophy, coronary artery disease, hypertension, hypothyroidism. PAST SURGICAL HISTORY: Defibrillator implant about 2-3 years ago, hernia repair, aortic abdominal aneurysm repair, prior coronary artery bypass grafting. ALLERGIES: NO KNOWN ALLERGIES. HOME MEDICATIONS: Include: 1. Amiodarone. 2. Plavix. 3. Ferrous sulfate. 4. [place]. 5. Levothyroxine. 6. Entresto. 7. Simvastatin. 8. Trazodone. SOCIAL HISTORY: No alcohol. Positive for tobacco use. REVIEW OF SYSTEMS: As above in the HPI. PHYSICAL EXAMINATION: VITAL SIGNS: Blood pressure 100/60, heart rate is 70, afebrile. GENERAL: The patient is awake, alert, in no acute distress. HEENT: Head is normocephalic, atraumatic. Pupils equal and reactive. Oral mucosa pink, moist. NECK: Supple. No JVD. He has a dressing over the left upper chest wall. No swelling or edema. ABDOMEN: Soft, nontender. No masses or organomegaly. EXTREMITIES: No cyanosis, clubbing, or edema. LABORATORY DATA: Shows hemoglobin 10.4, hematocrit of 30, white cell count of 7.9, platelet count of 267. Sodium 142, potassium 4.6, BUN of 27, creatinine 1.4. IMPRESSION AND PLAN: The patient is now status post BI-V defibrillator implant with difficulty placing the coronary sinus lead. We have been consulted again to place an epicardial lead. The patient will be n.p.o. after midnight. Procedures, alternatives and risks discussed with the patient. He is agreeable to proceed. We will plan for the a.m. Again, this is secondary to his class III heart failure. OSMAN Alexander MD JRT/ROSIO , 01:35 PM , 01:53 PM
[2018-05-11] MEDS: Heparin - SQ 10,000 UNITS/ML Vial SQ SCH ×3 (14:35→22:31)
--- NOTE | 2018-05-11 16:01 | P.PN ---
Physical Exam Vital signs: Vital Signs 05/10/18 20:00 05/11/18 00:00 05/11/18 00:11 Temperature 97.6 F 98.0 F Pulse Rate 69 70 70 Respiratory Rate 20 18 Blood Pressure 86/59 L 86/62 L Pulse Oximetry 97 98 05/11/18 01:11 05/11/18 02:11 05/11/18 02:47 Temperature Pulse Rate 69 69 Respiratory Rate 16 Blood Pressure Pulse Oximetry 05/11/18 03:00 05/11/18 04:00 05/11/18 04:46 Temperature 98.1 F Pulse Rate 69 70 Respiratory Rate 16 18 Blood Pressure 100/63 Pulse Oximetry 99 05/11/18 05:00 05/11/18 06:00 05/11/18 07:00 Temperature Pulse Rate 69 70 69 Respiratory Rate Blood Pressure Pulse Oximetry 05/11/18 07:46 05/11/18 12:00 05/11/18 14:41 Temperature 97.8 F 98.0 F Pulse Rate 69 70 Respiratory Rate 24 20 20 Blood Pressure 92/68 L 106/67 Pulse Oximetry 95 98 Intake & Output 05/10/18 05/11/18 05/11/18 18:59 06:59 18:59 Intake Total 400 / 400 530 / 530 50 / 50 Output Total 525 / 525 Balance 400 / 400 5 / 5 50 / 50 Weight 60.9 kg Intake: IV 400 / 400 50 / 50 50 / 50 NS Inj 1,000 ML @ 75 mls/hr IV. 400 / 400 CONT .[id number] EVELIO Rx#:[id number] Ancef 2 GM Premix Inj 2 gm In 50 / 50 50 / 50 50 ml @ 100 mls/hr IV.SIG Q8H EVELIO Rx#:[id number] Oral 480 / 480 Output: Urine 525 / 525 Other: Date of Last Bowel Movement 05/10/18 05/10/18 05/10/18 Narrative: Subjective Interval history: Patient appears in nad. No n/v/d/c. Denies any chest pain, palpitations, shortness of breath, diaphoresis. Denies nausea, vomiting. Physical Exam GENERAL: Patient in bed appears in nad. CARDIOVASCULAR: Regular rate and rhythm without murmurs, gallops, or rubs. RESPIRATORY: Breath sounds equal bilaterally. No accessory muscle use. GASTROINTESTINAL: Abdomen soft, non-tender, nondistended. MUSCULOSKELETAL: No cyanosis, or edema. BACK: Nontender without obvious deformity. No CVA tenderness. Assessment and Plan Near syncope, dizziness, suspect due to orthostatic hypotension, and pacemaker malfunction Troponin 0.02 -Orthostatic BP orderedunremarkable -Consult cardiology, Dr. Aparicio -Serial troponin and EKGs -Request records from [facility] - Pacemaker interrogated. - Evaluated by Dr Aparicio and had EP studies -Consult CTS for lead placement Acute kidney injury, suspect due to dehydration -IVF for hydration, monitor for fluid overload -Trend creatinine = Patient reportedly on ibuprofen 600 mg every 6 hours. Will discontinue. Hypertension, chronic, currently hypotensive -Hold all home medications for hypertension once med rec is updated -Monitor vitals =continue medications as appropriate. Monitor and adjust meds as indicated Depression. Due to patient's complaint of lightheadedness, and its appearance of somnolence. Will decrease dose of trazodone. 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 PT evaluation. Results - Labs CBC & Chem 7: 05/09/18 05:35 05/09/18 05:35 Laboratory Results - last 24 hr 05/11/18 11:35 Blood Type A Positive Blood Type Recheck Required Antibody Screen Negative MTS Gel Crossmatch See Detail - Imaging Impressions Chest X-Ray 05/10/18 00:00 CONCLUSION: 1. No evidence of pneumothorax. 2. There is new consolidation in the left lower lung. Assessment and Plan - Assessment (1) Near syncope Code(s): R55 - Syncope and collapse Status: Acute (2) Dizziness Code(s): R42 - Dizziness and giddiness Status: Acute
--- NOTE | 2018-05-11 19:01 | ECG ---
Date Performed: 05/10/2018 Time Performed: 20:20:34 PTAGE: 82 years EK% A-V sequential pacing Lead(s) unsuitable for analysis: I Pacemaker rhythm - no further analysis Abnormal ECG PREVIOUS TRACING : 05/09/2018 13.12 Since the previous tracing, no significant change noted DOCTOR: Luigi Puente Interpretating Date/Time 05/11/2018 19:01:10
--- NOTE | 2018-05-11 19:03 | ECG ---
Date Performed: 05/11/2018 Time Performed: 04:55:46 PTAGE: 82 years EKG: A-V sequential pacing Lead(s) unsuitable for analysis: I Pacemaker rhythm - no further anal ysis Abnormal ECG PREVIOUS TRACING : 05/10/2018 20.20 Since the previous tracing, no significant change noted DOCTOR: Luigi Puente Interpretating Date/Time 05/11/2018 19:01:33
[2018-05-11] MEDS: traZODone 50 MG Tablet PO SCH (20:02)
[2018-05-11 21:58] LABS: Bilirubin,Urine Negative (Negative); Clarity,Urine Clear (Clear); Color,Urine Yellow (Yellw/Straw); Glucose,Urine (UA) Negative (Negative); Leukocyte Esterase,Urine Negative (Negative); Mucus,Urine Few /lpf (Occasional); Nitrite,Urine Negative (Negative); Specific Gravity,Urine 1.029 (1.002-1.035); Squamous Epithelial Cell,Urine <1 /hpf (0-5)
[2018-05-11] MEDS ORDERED: Benzonatate 100 MG Capsule PO ONE (23:30)
[2018-05-12] MEDS: Levothyroxine 150 MCG Tablet PO SCH (05:45)
[2018-05-12] MEDS: Heparin - SQ 10,000 UNITS/ML Vial SQ SCH ×3 (06:22→21:52)
[2018-05-12] MEDS ORDERED: ceFAZolin 2 GM Premix Inj 2 GM/50 ML PIGGYBACK IV.SIG ONE (06:42)
[2018-05-12] MEDS ORDERED: Heparin - SQ 10,000 UNITS/ML Vial SQ ONE (06:42)
[2018-05-12] MEDS ORDERED: Sodium Chloride 0.9% Irr Bot 500 ML, ceFAZolin Inj 500 MG IRRIGATION SCH ×2 (06:45)
[2018-05-12] MEDS ORDERED: Sodium Chlor 0.9% Inj 20 ML, Bupivacaine Liposo PF 1.3% Inj 20 ML, Dexamethasone PF Inj... IRRIGATION ONE ×4 (07:00)
[2018-05-12] MEDS ORDERED: Post-op Orders (for Pharmacy) OTHER STA (09:30)
--- NOTE | 2018-05-12 09:30 | P.OP ---
Date of procedure: 05/12/18 Anesthesia: GETA Surgeon: Shellie Mckeon MD Operation and Findings: PREOPERATIVE DIAGNOSIS 1. Cardiomyopathy 2. CHF 3. Severe Left Ventricular Dysfunction 4. Previous CABG POSTOPERATIVE DIAGNOSIS same PROCEDURES 1. Left Lateral Mini-Thoracotomy 2. Epicardial Left Ventricular Lead Placement 3. Lysis of Myocardial Adhesions 4. Intercostal nerve Block. SURGEON Shellie Mckeon MD [employer] Yadira Marley, [facility] ANESTHESIA General Double-lumen endotracheal. BULB FILLER ABDIRAHMAN Cardoza MD OPERATIVE TIME Please see record. COMPLICATIONS None. INDICATION FOR PROCEDURE The patient is a 82 yo gentleman with cardiomyopathy, CAD s/p previous CABG and recurrent CHF who is being brought to the operating room for epicardial left ventricular lead placement following attempted percutaneous CS lead placement. DESCRIPTION OF PROCEDURE The patient was brought to the operating suite and placed in supine position with the left chest slightly elevated. Following satisfactory induction of general endotracheal anesthesia, the patient was prepped and draped in the usual sterile fashion. A mini-thoracotomy (5 cm) was then performed in the 4th ICS anterior axillary line and carried down to the pleura. With gentle sharp and blunt dissection, the left pleural space was entered. The pericardium was identified. The densely adherent lung was dissected free from the pericardial surface. The pericardium was opened and the underlying myocardium dissected free with careful lysis of adhesions from the previous CABG with care being taken to avoid direct or traction injury to the neurovascular bundle, and viable left ventricular muscle identified. A [employer] LV screw in lead was placed on the ventricular surface. Serial # [id number], REF # [id number]. Parameters measured were excellent with threshold of 1.2 V at 0.5 ms and impedance of 497ohms. The previously closed infraclavicular incision was opened and the pocket irrigated with antibiotic solution. The capped coronary sinus plug was removed. The lead was tunneled and connected to the generator device. A #24-Setswana Vijay drain was placed in the pleural space. Intercostal nerve block was performed at the level of the incision and 2 rib spaces above and below using Exparel solution. The intercostal space was reapproximated with a single #2 Vicryl stitch. Wounds were closed with 2-0, 3-0, and 4-0 Monocryl. The patient tolerated the procedure well and postoperatively went to recovery in stable condition.
[2018-05-12] MEDS ORDERED: fentaNYL Citrate Inj 100 MCG/2 ML Ampul ONE (10:01)
[2018-05-12] MEDS ORDERED: *morphine SULFATE 4 MG/ML PERIprocedure ONLY ONE ×2 (10:12→10:40)
--- NOTE | 2018-05-12 10:37 | XR ---
EXAM DATE: 05/12/2018 10:25 AM EDT AGE/SEX: 82 years / Male INDICATIONS: Post op thoracotomy. Left side chest tube. CLINICAL DATA: This is the patient's subsequent encounter. Patient reports that signs and symptoms h ave been present for 1 day and indicates a pain score of Nonresponsive. MEDICAL/SURGICAL HISTORY: . Hypertension. Hypothyroidism. Benign prostatic hyperplasia. Coronar y artery disease . Pacemaker. CABG. Hernia repair. Abdominal aortic aneurysm repair. Pacemaker place ment. COMPARISON: C, CHEST 1V SINGLE AP, 05/10/2018. . FINDINGS: Right IJ line is present with tip overlapping the expected region of the SVC. Previously seen left lung base opacity has improved. There may be slight consolidation and/or infiltrate at this site part ially technical. There is no appreciable pleural effusion for technique. Heart and mediastinum are u nremarkable. Left subclavian transvenous pacer wires are present with tips in the right atrium and ri ght ventricle. Left chest tube is in place. No definite pneumothorax is seen for technique. CONCLUSION: There is no pneumothorax and there is slight improvement in the aeration of the left lung with questionable slight consolidation and/or infiltrate. Electronically signed by: Alka Strickland MD 05/12/2018 10:36 AM EDT
[2018-05-12 10:38] LABS: Baso % (Auto) 0.4 % (0.0-2.0); Eos % (Auto) 0.6 % (0.0-4.0); Hematocrit 28.6 % (39.0-51.0); Hemoglobin 9.7 gm/dL (13.0-17.0); Lymph # (Auto) 0.2 th/mm3 (1.0-4.8); Lymph % (Auto) 2.9 % (9.0-44.0); Mean Corpuscular HGB Conc 34.1 % (32.0-36.0); Mean Corpuscular Hemoglobin 34.1 pg (27.0-34.0); Mean Platelet Volume 6.9 fL (7.0-11.0); Mono # (Auto) 0.1 th/mm3 (0.0-0.9); Mono % (Auto) 1.8 % (0.0-8.0); Neut # (Auto) 7.7 th/mm3 (1.8-7.7); Neut % (Auto) 94.3 % (16.0-70.0); Platelet Count 176 th/mm3 (150-450); Red Blood Count 2.86 mil/mm3 (4.50-5.90); Red Cell Distribution Width 15.3 % (11.6-17.2); White Blood Count 8.2 th/mm3 (4.0-11.0)
[2018-05-12 11:13] LABS: Calcium 7.1 mg/dL (8.5-10.1); Carbon Dioxide 23.8 meq/L (21.0-32.0); Potassium 4.4 meq/L (3.5-5.1)
[2018-05-12] MEDS: Ketorolac Inj 30 MG/ML (IVP) Vial IV.PUSH SCH ×3 (11:13→21:51)
[2018-05-12 11:32] LABS: Total Protein 5.4 g/dL (6.4-8.2)
--- NOTE | 2018-05-12 11:38 | P.PN ---
Physical Exam Vital signs: Vital Signs 05/11/18 12:00 05/11/18 13:00 05/11/18 14:00 Temperature 98.0 F Pulse Rate 69 69 69 Respiratory Rate 20 Blood Pressure 106/67 Pulse Oximetry 98 05/11/18 14:41 05/11/18 15:00 05/11/18 16:00 Temperature 98.2 F Pulse Rate 69 69 Respiratory Rate 20 20 Blood Pressure 119/77 Pulse Oximetry 97 05/11/18 16:42 05/11/18 17:00 05/11/18 18:00 Temperature Pulse Rate 69 69 Respiratory Rate 18 Blood Pressure Pulse Oximetry 05/11/18 19:00 05/11/18 19:58 05/11/18 20:00 Temperature 97.6 F Pulse Rate 69 68 Respiratory Rate 18 18 Blood Pressure 100/66 Pulse Oximetry 98 05/11/18 21:00 05/11/18 21:51 05/11/18 22:00 Temperature Pulse Rate 68 68 Respiratory Rate 18 Blood Pressure Pulse Oximetry 05/11/18 23:00 05/12/18 00:00 05/12/18 01:00 Temperature 98.3 F Pulse Rate 69 69 68 Respiratory Rate 18 Blood Pressure 99/67 L Pulse Oximetry 98 05/12/18 02:00 05/12/18 03:00 05/12/18 04:00 Temperature 98.0 F Pulse Rate 68 69 70 Respiratory Rate 20 Blood Pressure 110/67 Pulse Oximetry 93 L 05/12/18 04:36 05/12/18 05:00 05/12/18 06:00 Temperature Pulse Rate 68 68 Respiratory Rate 18 Blood Pressure Pulse Oximetry 05/12/18 07:00 05/12/18 09:53 05/12/18 10:58 Temperature 98.0 F 98.1 F Pulse Rate 69 70 69 Respiratory Rate 19 17 Blood Pressure 126/66 108/60 Pulse Oximetry 96 98 Intake & Output 05/11/18 05/12/18 05/12/18 18:59 06:59 18:59 Intake Total 730 / 730 240 / 240 1350 / 1350 Output Total 400 / 400 550 / 550 250 / 250 Balance 330 / 330 -310 / -310 1100 / 1100 Weight 61.3 kg Intake: IV 50 / 50 50 / 50 Ancef 2 GM Premix Inj 2 gm In 50 / 50 50 / 50 50 ml @ 100 mls/hr IV.SIG [employer] [facility] Rx#:[id number] Oral 680 / 680 240 / 240 Anesthesia Amount 1300 / 1300 Output: Urine 400 / 400 550 / 550 Estimated Blood Loss 50 / 50 Urine Amount (Catheter) 200 / 200 Indwelling Urethral Catheter 200 / 200 Other: Date of Last Bowel Movement 05/10/18 Narrative: Subjective Interval history: Patient appears in nad. Was seen after the procedure. Says he feels a lot better less chest pain. Shortness of breath is improving. No lightheadedness. No n/v/d/c. Physical Exam GENERAL: Patient in bed appears in nad. CARDIOVASCULAR: Regular rate and rhythm without murmurs, gallops, or rubs. RESPIRATORY: Chest tube in place. Dressings the surgical site of the chest tube in place CDI. Breath sounds equal bilaterally. No accessory muscle use. GASTROINTESTINAL: Abdomen soft, non-tender, nondistended. MUSCULOSKELETAL: No cyanosis, or edema. BACK: Nontender without obvious deformity. No CVA tenderness. Assessment and Plan Near syncope, dizziness, suspect due to orthostatic hypotension, and pacemaker malfunction Cardiomyopathy CHF Severe Left Ventricular Dysfunction Previous CABG Troponin 0.02 -Orthostatic BP orderedunremarkable -Consult cardiology, Dr. Aparicio -Serial troponin and EKGs -Request records from [facility] - Pacemaker interrogated. - Evaluated by Dr Aparicio and had EP studies -Consult CTS for lead placement PROCEDURES by Dr Mike CABALLERO on 05/12/18 1. Left Lateral Mini-Thoracotomy 2. Epicardial Left Ventricular Lead Placement 3. Lysis of Myocardial Adhesions 4. Intercostal nerve Block. Acute kidney injury, suspect due to dehydration -IVF for hydration, monitor for fluid overload -Trend creatinine = Patient reportedly on ibuprofen 600 mg every 6 hours. Will discontinue. Hypertension, chronic, currently hypotensive -Hold all home medications for hypertension once med rec is updated -Monitor vitals =continue medications as appropriate. Monitor and adjust meds as indicated Depression. Due to patient's complaint of lightheadedness, and its appearance of somnolence. Will decrease dose of trazodone. DVT prophylaxis: Heparin SQ Discussed Condition With: Patient, family at bedside, nurse, Dr. Mckeon CTS Discharge Planning: PT evaluation. Pending improvement and clearance by consultants. - Urinary Catheter Management Indwelling Urethral Catheter Cath placed during this visit: yes Reason for continuing: Other continuation reason Insertion date: 05/12/18 Insertion time: 07:45 Results - Labs CBC & Chem 7: 05/12/18 10:24 05/12/18 10:24 Laboratory Results - last 24 hr 05/11/18 05/11/18 05/11/18 11:35 13:52 16:12 WBC RBC Hgb Hct MCV MCH MCHC RDW Plt Count MPV Neut % (Auto) Lymph % (Auto) [place] % (Auto) Eos % (Auto) Baso % (Auto) Neut # (Auto) Lymph # (Auto) [place] # (Auto) Eos # (Auto) Baso # (Auto) WBC Differential Differential Comment Sodium Potassium Chloride Carbon Dioxide Anion Gap BUN Creatinine Estimated GFR Random Glucose Calcium Prot Corrected Calcium Total Protein Urine Color Yellow Urine Clarity Clear Urine pH 5.0 Ur Specific [place] 1.029 Urine Protein Negative Urine Glucose (UA) Negative Urine Ketones Negative Urine Occult Blood Negative Urine Nitrate Negative Urine Bilirubin Negative Urine Urobilinogen Less than 2 Ur Leukocyte Esterase Negative Urine WBC 1 Ur Squamous Epith Cells <1 Urine Mucus Few H Micro UA Comment Culture not ind Urine Culture Comments Culture not ind Nasal Screen MRSA (PCR) Not detected Blood Type A Positive Blood Type Recheck Required Antibody Screen Negative MTS Gel Crossmatch See Detail 05/12/18 05/12/18 10:24 10:24 WBC 8.2 RBC 2.86 L Hgb 9.7 L Hct 28.6 L MCV 100.0 MCH 34.1 H MCHC 34.1 RDW 15.3 Plt Count 176 D MPV 6.9 L Neut % (Auto) 94.3 H Lymph % (Auto) 2.9 L [place] % (Auto) 1.8 Eos % (Auto) 0.6 Baso % (Auto) 0.4 Neut # (Auto) 7.7 Lymph # (Auto) 0.2 L [place] # (Auto) 0.1 Eos # (Auto) 0.0 Baso # (Auto) 0.0 WBC Differential . Differential Comment Auto diff final Sodium 139 Potassium 4.4 Chloride 109 H Carbon Dioxide 23.8 Anion Gap 6 BUN 21 H Creatinine 1.11 Estimated GFR 64 L Random Glucose 107 H Calcium 7.1 L* Prot Corrected Calcium 8.0 L Total Protein 5.4 L Urine Color Urine Clarity Urine pH Ur Specific [place] Urine Protein Urine Glucose (UA) Urine Ketones Urine Occult Blood Urine Nitrate Urine Bilirubin Urine Urobilinogen Ur Leukocyte Esterase Urine WBC Ur Squamous Epith Cells Urine Mucus Micro UA Comment Urine Culture Comments Nasal Screen MRSA (PCR) Blood Type Blood Type Recheck Antibody Screen MTS Gel Crossmatch - Imaging Impressions Chest X-Ray 05/12/18 09:30 CONCLUSION: There is no pneumothorax and there is slight improvement in the aeration of the left lung with questionable slight consolidation and/or infiltrate. - Procedures 1. Cardiomyopathy 2. CHF 3. Severe Left Ventricular Dysfunction 4. Previous CABG PROCEDURES by Dr Mike CABALLERO on 05/12/18 1. Left Lateral Mini-Thoracotomy 2. Epicardial Left Ventricular Lead Placement 3. Lysis of Myocardial Adhesions 4. Intercostal nerve Block. Assessment and Plan - Assessment (1) Near syncope Code(s): R55 - Syncope and collapse Status: Acute (2) Dizziness Code(s): R42 - Dizziness and giddiness Status: Acute
[2018-05-12] MEDS ORDERED: Lidocaine PF 1% Inj 5 ML Syringe INFILTRATN ONE (12:00)
[2018-05-12] MEDS ORDERED: Normosol-R pH 7.4 Inj 2,000 ML IV.CONT ONE (12:00)
[2018-05-12] MEDS ORDERED: Sodium Chlor 0.9% Inj 500 ML IV.SIG ONE (12:00)
[2018-05-12] MEDS ORDERED: Neostigmine Inj 5 MG/5 ML Syringe IV.PUSH ONE (12:00)
[2018-05-12] MEDS ORDERED: Phenylephrine/NS 1000 MCG/10ML Syringe IV.PUSH ONE (12:00)
[2018-05-12] MEDS ORDERED: Glycopyrrolate Inj 1 MG/5 ML Syringe IV.PUSH ONE (12:00)
[2018-05-12] MEDS: Amiodarone 200 MG Tablet PO SCH (12:01)
[2018-05-12] MEDS: traZODone 50 MG Tablet PO SCH (21:53)
[2018-05-12] MEDS: Senna/Docusate Sodium 8.6/50 MG Tablet PO SCH (21:53)
[2018-05-13] MEDS: Ketorolac Inj 30 MG/ML (IVP) Vial IV.PUSH SCH (03:49)
[2018-05-13] MEDS: Heparin - SQ 10,000 UNITS/ML Vial SQ SCH ×3 (05:38→21:36)
[2018-05-13] MEDS: Levothyroxine 150 MCG Tablet PO SCH (05:38)
--- NOTE | 2018-05-13 10:39 | P.PNCA ---
- Note Subjective/Hospital Course: pt seen and evaluated / full consult to follow for epicardial lead placement in am [employer] Albert Sena notified 05/12 PROCEDURES 1. Left Lateral Mini-Thoracotomy 2. Epicardial Left Ventricular Lead Placement 3. Lysis of Myocardial Adhesions 4. Intercostal nerve Block. 05/13 Doing well. Pain adequately controlled Anticipate removal of the CT tomorrow Possible discharge home on Tuesday PO Antibiotic coverage for 5 days following completion of the IV course Objective: Vital Signs - 24 hr 05/12/18 10:45 05/12/18 10:58 05/12/18 11:00 Temperature 98.1 F 97.8 F Pulse Rate 69 69 69 Respiratory Rate 17 17 19 Blood Pressure 107/62 108/60 108/60 Pulse Oximetry 97 98 98 05/12/18 11:41 05/12/18 11:44 05/12/18 12:00 Temperature 97.5 F L 97.5 F L Pulse Rate 70 70 Respiratory Rate 16 18 16 Blood Pressure 103/65 103/65 Pulse Oximetry 95 95 05/12/18 13:00 05/12/18 14:00 05/12/18 15:00 Temperature Pulse Rate 68 68 68 Respiratory Rate Blood Pressure Pulse Oximetry 05/12/18 16:00 05/12/18 17:00 05/12/18 18:00 Temperature 98.0 F Pulse Rate 68 68 69 Respiratory Rate 18 Blood Pressure 103/72 Pulse Oximetry 96 05/12/18 18:42 05/12/18 18:43 05/12/18 19:00 Temperature Pulse Rate 70 Respiratory Rate 18 18 Blood Pressure Pulse Oximetry 05/12/18 20:00 05/12/18 21:00 05/12/18 22:00 Temperature 97.4 F L Pulse Rate 68 70 70 Respiratory Rate 18 Blood Pressure 98/67 L Pulse Oximetry 20 L 05/12/18 23:00 05/13/18 00:00 05/13/18 01:00 Temperature 97.7 F Pulse Rate 69 69 69 Respiratory Rate 18 Blood Pressure 104/71 Pulse Oximetry 96 05/13/18 02:00 05/13/18 03:00 05/13/18 04:00 Temperature 97.3 F L Pulse Rate 68 69 68 Respiratory Rate 18 Blood Pressure 92/64 L Pulse Oximetry 95 05/13/18 04:35 05/13/18 05:00 05/13/18 05:59 Temperature Pulse Rate 69 69 Respiratory Rate 18 Blood Pressure Pulse Oximetry 05/13/18 08:00 Temperature 98 F Pulse Rate 70 Respiratory Rate 20 Blood Pressure 100/63 Pulse Oximetry Result Diagrams: 05/12/18 10:24 05/12/18 10:24
[2018-05-13] MEDS: Senna/Docusate Sodium 8.6/50 MG Tablet PO SCH ×2 (11:19→21:37)
[2018-05-13] MEDS: Amiodarone 200 MG Tablet PO SCH (11:19)
--- NOTE | 2018-05-13 12:04 | P.PN ---
Physical Exam Vital signs: Vital Signs 05/12/18 13:00 05/12/18 14:00 05/12/18 15:00 Temperature Pulse Rate 68 68 68 Respiratory Rate Blood Pressure Pulse Oximetry 05/12/18 16:00 05/12/18 17:00 05/12/18 18:00 Temperature 98.0 F Pulse Rate 68 68 69 Respiratory Rate 18 Blood Pressure 103/72 Pulse Oximetry 96 05/12/18 18:42 05/12/18 18:43 05/12/18 19:00 Temperature Pulse Rate 70 Respiratory Rate 18 18 Blood Pressure Pulse Oximetry 05/12/18 20:00 05/12/18 21:00 05/12/18 22:00 Temperature 97.4 F L Pulse Rate 68 70 70 Respiratory Rate 18 Blood Pressure 98/67 L Pulse Oximetry 20 L 05/12/18 23:00 05/13/18 00:00 05/13/18 01:00 Temperature 97.7 F Pulse Rate 69 69 69 Respiratory Rate 18 Blood Pressure 104/71 Pulse Oximetry 96 05/13/18 02:00 05/13/18 03:00 05/13/18 04:00 Temperature 97.3 F L Pulse Rate 68 69 68 Respiratory Rate 18 Blood Pressure 92/64 L Pulse Oximetry 95 05/13/18 04:35 05/13/18 05:00 05/13/18 05:59 Temperature Pulse Rate 69 69 Respiratory Rate 18 Blood Pressure Pulse Oximetry 05/13/18 08:00 Temperature 98 F Pulse Rate 70 Respiratory Rate 20 Blood Pressure 100/63 Pulse Oximetry Intake & Output 05/12/18 05/13/18 05/13/18 18:59 06:59 18:59 Intake Total 2170 / 2170 820 / 820 Output Total 500 / 500 150 / 150 100 / 100 Balance 1670 / 1670 670 / 670 -100 / -100 Weight 61.3 kg Intake: IV 150 / 150 100 / 100 Ancef 2 GM Premix Inj 2 gm In 50 / 50 50 ml @ 100 mls/hr IV.SIG [employer] [facility]ELIO Rx#:[id number] Ancef Inj 1,000 MG In NS Inj 100 / 100 100 / 100 100 ML @ 200 mls/hr IV.SIG Q8H [facility]ELIO Rx#:[id number] Oral 720 / 720 720 / 720 Anesthesia Amount 1300 / 1300 Output: Urine 150 / 150 Estimated Blood Loss 50 / 50 Urine Amount (Catheter) 350 / 350 Indwelling Urethral Catheter 350 / 350 Chest Tube Drainage 100 / 100 100 / 100 Left Pleural 100 / 100 100 / 100 Other: Date of Last Bowel Movement 05/11/18 Narrative: Subjective Interval history: He is in the chair, chest tube in place draining serosanguineous fluid. Patient says he has some mild pain of the chest tube site. However the pain significantly improved. He has no palpitations or shortness of breath. Feels weak. No nausea vomiting no diarrhea or constipation. Tolerates food appetite is fair fairly well. Physical Exam GENERAL: Patient in bed appears in nad. CARDIOVASCULAR: Regular rate and rhythm without murmurs, gallops, or rubs. RESPIRATORY: Chest tube in place. Dressings the surgical site of the chest tube in place CDI. Breath sounds equal bilaterally. No accessory muscle use. GASTROINTESTINAL: Abdomen soft, non-tender, nondistended. MUSCULOSKELETAL: No cyanosis, or edema. BACK: Nontender without obvious deformity. No CVA tenderness. Assessment and Plan Near syncope, dizziness, suspect due to orthostatic hypotension, and pacemaker malfunction Cardiomyopathy CHF Severe Left Ventricular Dysfunction Previous CABG Troponin 0.02 -Orthostatic BP orderedunremarkable -Consult cardiology, Dr. Aparicio -Serial troponin and EKGs -Request records from [facility] - Pacemaker interrogated. - Evaluated by Dr Aparicio and had EP studies -Consult CTS for lead placement PROCEDURES by Dr Mike CABALLERO on 05/12/18 1. Left Lateral Mini-Thoracotomy 2. Epicardial Left Ventricular Lead Placement 3. Lysis of Myocardial Adhesions 4. Intercostal nerve Block. Acute kidney injury, suspect due to dehydration -IVF for hydration, monitor for fluid overload -Trend creatinine = Patient reportedly on ibuprofen 600 mg every 6 hours. Will discontinue. Hypertension, chronic, currently hypotensive -Hold all home medications for hypertension once med rec is updated -Monitor vitals =continue medications as appropriate. Monitor and adjust meds as indicated Depression. Due to patient's complaint of lightheadedness, and its appearance of somnolence. Will decrease dose of trazodone. DVT prophylaxis: Heparin SQ Discussed Condition With: Patient, family at bedside, nurse, Dr. Mckeon CTS Discharge Planning: PT evaluation. Pending improvement and clearance by consultants. Discussed with Dr. Mckeon cardiothoracic surgeon possible discharge in 1 or 2 days. Possible tomorrow we will chest tube will be removed - Urinary Catheter Management Indwelling Urethral Catheter Cath placed during this visit: yes, but has since been removed by the nurse Reason for continuing: Other continuation reason Insertion date: 05/12/18 Insertion time: 07:45 Removal time: 15:30 Results - Labs CBC & Chem 7: 05/12/18 10:24 05/12/18 10:24 Microbiology 05/12/18 08:45 Other Fungal Smear - Final No fungal elements seen 05/12/18 08:45 Fluid - Other Gram Stain - Final - Procedures 1. Cardiomyopathy 2. CHF 3. Severe Left Ventricular Dysfunction 4. Previous CABG PROCEDURES by Dr Mckeon CTS on 05/12/18 1. Left Lateral Mini-Thoracotomy 2. Epicardial Left Ventricular Lead Placement 3. Lysis of Myocardial Adhesions 4. Intercostal nerve Block. Assessment and Plan - Assessment (1) Near syncope Code(s): R55 - Syncope and collapse Status: Acute (2) Dizziness Code(s): R42 - Dizziness and giddiness Status: Acute
--- NOTE | 2018-05-13 12:09 | P.DS ---
Date of admission: 05/12/18 13:07 Primary care physician: Cyril Gabriel Brief History from admission: 82-year-old male with a history of CAD, hypertension, BPH, hypothyroidism presented to the ED with complaints of dizziness and low blood pressure. Patient states 1 week ago he was admitted to [facility] for a cardiac arrest and at this time he was told there was an issue with his pacemaker leads. He was set to follow-up with Dr. Aparicio outpatient for a pacemaker revision within the next 2 days but today he felt increasingly weak with dizziness and experienced low blood pressure at home. He did not take his Entresto today due to his low blood pressure. He does complain of associated chest pressure that is worse with palpation, denies any shortness of breath, fever or chills. He states the dizziness is increased when he goes from a sitting to standing position. DS: Diagnosis - Discharge Diagnosis (1) Near syncope Status: Acute (2) Dizziness Status: Acute DS: Medications - Discharge Medications Prescriptions: ciprofloxacin [Cipro] 500 mg PO Q12H #10 ml DS: Summary Hospital Course: Physical Exam GENERAL: Patient in bed appears in nad. CARDIOVASCULAR: Regular rate and rhythm without murmurs, gallops, or rubs. RESPIRATORY: Chest tube in place. Dressings the surgical site of the chest tube in place CDI. Breath sounds equal bilaterally. No accessory muscle use. GASTROINTESTINAL: Abdomen soft, non-tender, nondistended. MUSCULOSKELETAL: No cyanosis, or edema. BACK: Nontender without obvious deformity. No CVA tenderness. Assessment and Plan Near syncope, dizziness, suspect due to orthostatic hypotension, and pacemaker malfunction Cardiomyopathy CHF Severe Left Ventricular Dysfunction Previous CABG Troponin 0.02 -Orthostatic BP orderedunremarkable -Consult cardiology, Dr. Aparicio -Serial troponin and EKGs -Request records from [facility] - Pacemaker interrogated. - Evaluated by Dr Aparicio and had EP studies -Consult CTS for lead placement PROCEDURES by Dr Mike CABALLERO on 05/12/18 1. Left Lateral Mini-Thoracotomy 2. Epicardial Left Ventricular Lead Placement 3. Lysis of Myocardial Adhesions 4. Intercostal nerve Block. Acute kidney injury, suspect due to dehydration -IVF for hydration, monitor for fluid overload -Trend creatinine = Patient reportedly on ibuprofen 600 mg every 6 hours. Will discontinue. Hypertension, chronic, currently hypotensive -Hold all home medications for hypertension once med rec is updated -Monitor vitals =continue medications as appropriate. Monitor and adjust meds as indicated Depression. Due to patient's complaint of lightheadedness, and its appearance of somnolence. Will decrease dose of trazodone. Hypocalcemia. Monitor and replace DVT prophylaxis: Heparin SQ Discussed Condition With: Chest tube was removed some discharge after chest tube was removed chest x-ray reassuring. Cleared by CTS for DC. Discharge home with home health in stable condition to follow-up with PCP and consultants as outpatient DC date: 05/16/2018 - Time Spent with Patient Total time spent providing and/or coordinating discharge services: Greater than 30 minutes - Quality: VTE Deep Vein Thrombosis/Pulmonary Embolism Present on Admission: No Exam Vital signs: Vital Signs 05/12/18 13:00 05/12/18 14:00 05/12/18 15:00 Temperature Pulse Rate 68 68 68 Respiratory Rate Blood Pressure Pulse Oximetry 05/12/18 16:00 05/12/18 17:00 05/12/18 18:00 Temperature 98.0 F Pulse Rate 68 68 69 Respiratory Rate 18 Blood Pressure 103/72 Pulse Oximetry 96 05/12/18 18:42 05/12/18 18:43 05/12/18 19:00 Temperature Pulse Rate 70 Respiratory Rate 18 18 Blood Pressure Pulse Oximetry 05/12/18 20:00 05/12/18 21:00 05/12/18 22:00 Temperature 97.4 F L Pulse Rate 68 70 70 Respiratory Rate 18 Blood Pressure 98/67 L Pulse Oximetry 20 L 05/12/18 23:00 05/13/18 00:00 05/13/18 01:00 Temperature 97.7 F Pulse Rate 69 69 69 Respiratory Rate 18 Blood Pressure 104/71 Pulse Oximetry 96 05/13/18 02:00 05/13/18 03:00 05/13/18 04:00 Temperature 97.3 F L Pulse Rate 68 69 68 Respiratory Rate 18 Blood Pressure 92/64 L Pulse Oximetry 95 05/13/18 04:35 05/13/18 05:00 05/13/18 05:59 Temperature Pulse Rate 69 69 Respiratory Rate 18 Blood Pressure Pulse Oximetry 05/13/18 08:00 Temperature 98 F Pulse Rate 70 Respiratory Rate 20 Blood Pressure 100/63 Pulse Oximetry Intake & Output 07/20/18 07/21/18 07/21/18 18:59 06:59 18:59 Intake Total 2170 / 2170 820 / 820 Output Total 500 / 500 150 / 150 100 / 100 Balance 1670 / 1670 670 / 670 -100 / -100 Weight 61.3 kg Intake: IV 150 / 150 100 / 100 Ancef 2 GM Premix Inj 2 gm In 50 / 50 50 ml @ 100 mls/hr IV.SIG ACCOUNTANT ASSISTANT EVELIO Rx#:[id number] Ancef Inj 1,000 MG In NS Inj 100 / 100 100 / 100 100 ML @ 200 mls/hr IV.SIG Q8H EVELIO Rx#:[id number] Oral 720 / 720 720 / 720 Anesthesia Amount 1300 / 1300 Output: Urine 150 / 150 Estimated Blood Loss 50 / 50 Urine Amount (Catheter) 350 / 350 Indwelling Urethral Catheter 350 / 350 Chest Tube Drainage 100 / 100 100 / 100 Left Pleural 100 / 100 100 / 100 Other: Date of Last Bowel Movement 05/11/18 Results Procedures completed during hospitalization: 1. Cardiomyopathy 2. CHF 3. Severe Left Ventricular Dysfunction 4. Previous CABG PROCEDURES by Dr Mike CABALLERO on 05/12/18 1. Left Lateral Mini-Thoracotomy 2. Epicardial Left Ventricular Lead Placement 3. Lysis of Myocardial Adhesions 4. Intercostal nerve Block. - Impressions ITS Impressions Head CT 05/08/18 21:21 CONCLUSION: 1. No acute findings in the brain. 2. Right maxillary sinus disease including air-fluid level, suggesting acute sinusitis. Carotid Doppler Study 05/09/18 00:00 CONCLUSION: 1. Right Internal Carotid Artery: Extensive atherosclerotic plaquing. No hemodynamically significant stenosis is identified. 2. Left Internal Carotid Artery: Extensive atherosclerotic plaquing. Velocities would suggest stenosis less than 50% at the bifurcation. Chest X-Ray 05/12/18 09:30 CONCLUSION: There is no pneumothorax and there is slight improvement in the aeration of the left lung with questionable slight consolidation and/or infiltrate. Discharge Plan - Discharge Disposition Patient Disposition: /Home Health Service - Discharge Condition Condition: Stable - Discharge Order Discharge Orders: Discharge Order (Routine); Ordered 05/14/18 Ordered By: Maegan Mcelroy - Discharge Details Anticipated Discharge Date: 05/14/18 - Physicians Team Primary Care Provider: Cyril Gabriel Attending Provider: Maegan Mcelroy Other Providers: Joyce Aparicio MD ; Ej Pagan
--- NOTE | 2018-05-13 12:10 | P.DCO ---
- Physical Therapy Order: Evaluate and treat - Home Health Nursing Order: Medical education, Signs/symptoms of disease process, Medication education-adverse effect, Nursing assessment with vital signs - Certification I have seen patient Demarco Campos on 05/13/18. My clinical findings support the need for the requested home health care services because: Limited mobility due to disease progression, Patient has SOB I certify that my clinical findings support that this patient is homebound because: Post-op weakness
[2018-05-13] MEDS: traZODone 50 MG Tablet PO SCH (22:00)
[2018-05-14] MEDS: Heparin - SQ 10,000 UNITS/ML Vial SQ SCH ×3 (05:35→21:53)
[2018-05-14] MEDS: Levothyroxine 150 MCG Tablet PO SCH (05:35)
[2018-05-14] MEDS: Amiodarone 200 MG Tablet PO SCH (09:14)
[2018-05-14] MEDS: Senna/Docusate Sodium 8.6/50 MG Tablet PO SCH ×2 (09:15→21:55)
[2018-05-14] MEDS: Ciprofloxacin 500 MG Tablet PO SCH ×2 (09:29→21:55)
--- NOTE | 2018-05-14 09:56 | P.PNCA ---
- Note Subjective/Hospital Course: pt seen and evaluated / full consult to follow for epicardial lead placement in am [employer] Albert Sena notified 05/12 PROCEDURES 1. Left Lateral Mini-Thoracotomy 2. Epicardial Left Ventricular Lead Placement 3. Lysis of Myocardial Adhesions 4. Intercostal nerve Block. 05/13 Doing well. Pain adequately controlled Anticipate removal of the CT tomorrow Possible discharge home on Tuesday PO Antibiotic coverage for 5 days following completion of the IV course 05/14 Doing well C/o right sided rib pain from CPR CT dumped 175 mls this morning with ambulation Likely D/C CT tomorrow and send home Objective: Vital Signs - 24 hr 05/13/18 10:00 05/13/18 11:00 05/13/18 12:00 Temperature 97.8 F Pulse Rate 68 69 68 Respiratory Rate 18 Blood Pressure 90/59 L Pulse Oximetry 05/13/18 13:00 05/13/18 13:42 05/13/18 14:00 Temperature Pulse Rate 68 68 Respiratory Rate 20 Blood Pressure Pulse Oximetry 05/13/18 15:00 05/13/18 16:00 05/13/18 17:00 Temperature 98 F Pulse Rate 74 70 69 Respiratory Rate 18 Blood Pressure 104/70 Pulse Oximetry 05/13/18 17:58 05/13/18 18:00 05/13/18 19:00 Temperature Pulse Rate 69 70 Respiratory Rate 18 Blood Pressure Pulse Oximetry 05/13/18 20:00 05/13/18 21:00 05/13/18 22:00 Temperature 98.8 F Pulse Rate 70 69 71 Respiratory Rate 18 Blood Pressure 99/67 L Pulse Oximetry 95 05/13/18 23:00 05/14/18 00:00 05/14/18 01:00 Temperature 97.7 F Pulse Rate 69 71 69 Respiratory Rate 16 Blood Pressure 103/56 L Pulse Oximetry 95 05/14/18 02:00 05/14/18 03:00 05/14/18 03:50 Temperature Pulse Rate 69 69 Respiratory Rate 16 Blood Pressure Pulse Oximetry 05/14/18 04:00 05/14/18 05:00 05/14/18 06:00 Temperature 97.5 F L Pulse Rate 70 70 70 Respiratory Rate 16 Blood Pressure 103/63 Pulse Oximetry 05/14/18 07:00 05/14/18 08:00 05/14/18 09:14 Temperature 97.8 F Pulse Rate 69 70 Respiratory Rate 18 20 Blood Pressure 109/67 Pulse Oximetry Labs: Laboratory Results - last 12 hr 05/11/18 11:35 MTS Gel Crossmatch See Detail Result Diagrams: 05/12/18 10:24 05/12/18 10:24
[2018-05-14] MEDS ORDERED: Calcium Chloride Inj 1 GM/10 ML Syringe IV.PUSH ONE (14:34)
[2018-05-14] MEDS ORDERED: Calcium Chloride Inj 0.5 GM in Sodium Chlor 0.9% Inj 100 ML IV.SIG ONE (15:00)
[2018-05-14 16:26] LABS: Magnesium 1.9 mg/dL (1.5-2.5); Phosphorus 3.4 mg/dL (2.5-4.9)
--- NOTE | 2018-05-14 16:35 | P.PN ---
Physical Exam Vital signs: Vital Signs 05/13/18 17:00 05/13/18 17:58 05/13/18 18:00 Temperature Pulse Rate 69 69 Respiratory Rate 18 Blood Pressure Pulse Oximetry 05/13/18 19:00 05/13/18 20:00 05/13/18 21:00 Temperature 98.8 F Pulse Rate 70 70 69 Respiratory Rate 18 Blood Pressure 99/67 L Pulse Oximetry 95 05/13/18 22:00 05/13/18 23:00 05/14/18 00:00 Temperature 97.7 F Pulse Rate 71 69 71 Respiratory Rate 16 Blood Pressure 103/56 L Pulse Oximetry 95 05/14/18 01:00 05/14/18 02:00 05/14/18 03:00 Temperature Pulse Rate 69 69 69 Respiratory Rate Blood Pressure Pulse Oximetry 05/14/18 03:50 05/14/18 04:00 05/14/18 05:00 Temperature 97.5 F L Pulse Rate 70 70 Respiratory Rate 16 16 Blood Pressure 103/63 Pulse Oximetry 05/14/18 06:00 05/14/18 07:00 05/14/18 08:00 Temperature 97.8 F Pulse Rate 70 69 69 Respiratory Rate 18 Blood Pressure 109/67 Pulse Oximetry 05/14/18 09:00 05/14/18 09:14 05/14/18 10:00 Temperature Pulse Rate 68 68 Respiratory Rate 20 Blood Pressure Pulse Oximetry 05/14/18 11:00 05/14/18 12:00 05/14/18 13:00 Temperature 97.7 F Pulse Rate 69 70 71 Respiratory Rate 17 Blood Pressure 102/65 Pulse Oximetry 05/14/18 14:00 05/14/18 15:00 05/14/18 16:00 Temperature 97.8 F Pulse Rate 69 69 68 Respiratory Rate 17 Blood Pressure 107/65 Pulse Oximetry Intake & Output 05/13/18 05/14/18 05/14/18 18:59 06:59 18:59 Intake Total 820 / 820 480 / 480 Output Total 750 / 750 500 / 500 Balance 70 / 70 -20 / -20 Weight 62.7 kg Intake: IV 100 / 100 Ancef Inj 1,000 MG In NS Inj 100 / 100 100 ML @ 200 mls/hr IV.SIG Q8H [facility] Rx#:[id number] Oral 720 / 720 480 / 480 Output: Urine 500 / 500 500 / 500 Chest Tube Drainage 250 / 250 Left Pleural 250 / 250 Other: Date of Last Bowel Movement 05/14/18 Narrative: Subjective Interval history: He was ambulating earlier today. Now feels tired. Has some pain at the chest tube site. No nausea or vomiting eating fairly well. No wheezing. Chest tube in place draining serosanguineous fluid, per Dr. Mckeon possible removal of the chest tube tomorrow if less output. Physical Exam GENERAL: Patient in bed appears in nad. CARDIOVASCULAR: Regular rate and rhythm without murmurs, gallops, or rubs. RESPIRATORY: Chest tube in place. Dressings the surgical site of the chest tube in place CDI. Breath sounds equal bilaterally. No accessory muscle use. GASTROINTESTINAL: Abdomen soft, non-tender, nondistended. MUSCULOSKELETAL: No cyanosis, or edema. BACK: Nontender without obvious deformity. No CVA tenderness. Assessment and Plan Near syncope, dizziness, suspect due to orthostatic hypotension, and pacemaker malfunction Cardiomyopathy CHF Severe Left Ventricular Dysfunction Previous CABG Troponin 0.02 -Orthostatic BP orderedunremarkable -Consult cardiology, Dr. Aparicio -Serial troponin and EKGs -Request records from [facility] - Pacemaker interrogated. - Evaluated by Dr Aparicio and had EP studies -Consult CTS for lead placement PROCEDURES by Dr Mckeon CTS on 05/12/18 1. Left Lateral Mini-Thoracotomy 2. Epicardial Left Ventricular Lead Placement 3. Lysis of Myocardial Adhesions 4. Intercostal nerve Block. Acute kidney injury, suspect due to dehydration -IVF for hydration, monitor for fluid overload -Trend creatinine = Patient reportedly on ibuprofen 600 mg every 6 hours. Will discontinue. Hypertension, chronic, currently hypotensive -Hold all home medications for hypertension once med rec is updated -Monitor vitals =continue medications as appropriate. Monitor and adjust meds as indicated Depression. Due to patient's complaint of lightheadedness, and its appearance of somnolence. Will decrease dose of trazodone. Hypocalcemia. Monitor and replace DVT prophylaxis: Heparin SQ Discussed Condition With: Patient, family at bedside, nurse, Dr. Mckeon CTS Discharge Planning: PT evaluation. Pending improvement and clearance by consultants. Discussed with Dr. Mckeon cardiothoracic surgeon possible discharge tomorrow if less output from chest tube. - Urinary Catheter Management Indwelling Urethral Catheter Cath placed during this visit: yes, but has since been removed by the nurse Reason for continuing: Other continuation reason Insertion date: 05/12/18 Insertion time: 07:45 Removal time: 15:30 Results - Labs CBC & Chem 7: 05/12/18 10:24 05/12/18 10:24 Laboratory Results - last 24 hr 05/11/18 05/14/18 05/14/18 11:35 15:50 15:50 Phosphorus 3.4 Magnesium 1.9 Iron 25 L Ferritin 86 MTS Gel Crossmatch See Detail Microbiology 05/12/18 08:45 Other Acid Fast Bacilli Smear - Final No acid fast bacilli seen 05/12/18 08:45 Fluid - Other Gram Stain - Final 05/12/18 08:45 Fluid - Other Wound Culture - Preliminary No growth in 48 hours - Procedures 1. Cardiomyopathy 2. CHF 3. Severe Left Ventricular Dysfunction 4. Previous CABG PROCEDURES by Dr Mike CABALLERO on 05/12/18 1. Left Lateral Mini-Thoracotomy 2. Epicardial Left Ventricular Lead Placement 3. Lysis of Myocardial Adhesions 4. Intercostal nerve Block. Assessment and Plan - Assessment (1) Afib Code(s): I48.91 - Unspecified atrial fibrillation Status: Acute (2) Near syncope Code(s): R55 - Syncope and collapse Status: Acute (3) Dizziness Code(s): R42 - Dizziness and giddiness Status: Acute
[2018-05-14 16:52] LABS: % Iron Saturation 11.8 % (20-50); Folate 10.5 ng/mL (3.1-17.5)
[2018-05-14] MEDS: traZODone 50 MG Tablet PO SCH (21:58)
[2018-05-15] MEDS: Heparin - SQ 10,000 UNITS/ML Vial SQ SCH ×2 (06:00→13:08)
[2018-05-15] MEDS: Levothyroxine 150 MCG Tablet PO SCH (06:01)
[2018-05-15] MEDS: Amiodarone 200 MG Tablet PO SCH (09:30)
[2018-05-15] MEDS: Senna/Docusate Sodium 8.6/50 MG Tablet PO SCH (09:30)
--- NOTE | 2018-05-15 10:12 | P.PNCA ---
- Note Subjective/Hospital Course: pt seen and evaluated / full consult to follow for epicardial lead placement in am [employer] rep Albert Sena notified 05/12 PROCEDURES 1. Left Lateral Mini-Thoracotomy 2. Epicardial Left Ventricular Lead Placement 3. Lysis of Myocardial Adhesions 4. Intercostal nerve Block. 05/13 Doing well. Pain adequately controlled Anticipate removal of the CT tomorrow Possible discharge home on Tuesday PO Antibiotic coverage for 5 days following completion of the IV course 05/14 Doing well C/o right sided rib pain from CPR CT dumped 175 mls this morning with ambulation Likely D/C CT tomorrow and send home 05/15 chest tube removed without difficulty check CXR at 12 noon, if stable, then pt can be dc home from [facility] standpoint hs f/u appointment in 2 weeks Objective: Vital Signs - 24 hr 05/14/18 11:00 05/14/18 12:00 05/14/18 13:00 Temperature 97.7 F Pulse Rate 69 70 71 Respiratory Rate 17 Blood Pressure 102/65 Pulse Oximetry 05/14/18 14:00 05/14/18 15:00 05/14/18 16:00 Temperature 97.8 F Pulse Rate 69 69 68 Respiratory Rate 17 Blood Pressure 107/65 Pulse Oximetry 05/14/18 17:00 05/14/18 18:00 05/14/18 19:00 Temperature Pulse Rate 69 69 70 Respiratory Rate Blood Pressure Pulse Oximetry 05/14/18 20:00 05/14/18 21:55 05/14/18 23:00 Temperature 99.7 F H Pulse Rate 70 70 Respiratory Rate 20 20 Blood Pressure 144/55 H Pulse Oximetry 94 L 05/15/18 00:00 05/15/18 01:00 05/15/18 02:00 Temperature 98.1 F Pulse Rate 70 70 68 Respiratory Rate 20 Blood Pressure 117/69 Pulse Oximetry 96 05/15/18 03:00 05/15/18 04:00 05/15/18 05:00 Temperature 98 F Pulse Rate 68 70 68 Respiratory Rate 20 Blood Pressure 111/66 Pulse Oximetry 94 L 05/15/18 06:00 05/15/18 08:00 Temperature 97.9 F Pulse Rate 70 69 Respiratory Rate 16 Blood Pressure 109/66 Pulse Oximetry 92 L GENERAL: A&O x 3 SKIN: Warm and dry. 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 EYES: No scleral icterus. No injection or drainage. NECK: Supple, trachea midline. No JVD or lymphadenopathy. CARDIOVASCULAR: Regular rate and rhythm without murmurs, gallops, or rubs. RESPIRATORY: Breath sounds equal bilaterally. No accessory muscle use. GASTROINTESTINAL: Abdomen soft, non-tender, nondistended. MUSCULOSKELETAL: No cyanosis, or edema. BACK: Nontender without obvious deformity. No CVA tenderness. Result Diagrams: 05/12/18 10:24 05/12/18 10:24 - Plan (4) S/P thoracotomy Plan: chest tube dc without difficutly leave current dressing in place x 48hrs , then ok to remove and shower
--- NOTE | 2018-05-15 13:01 | XR ---
EXAM DATE: 05/15/2018 12:58 PM EDT AGE/SEX: 82 years / Male INDICATIONS: Post left chest tube removal CLINICAL DATA: This is the patient's subsequent encounter. Patient reports that signs and symptoms h ave been present for 1 week and indicates a pain score of 2/10. MEDICAL/SURGICAL HISTORY: . Hypertension. Hypothyroidism. Benign prostatic hyperplasia. Coronar y artery disease . . Pacemaker. CABG. Hernia repair. Abdominal aortic aneurysm repair. Pacemaker p lacement COMPARISON: C, CHEST 1V SINGLE AP, 05/12/2018. . FINDINGS: Cardiomegaly without failure. Left chest tube removed without pneumothorax. Pacer in good position. C entral line in good position. CONCLUSION: No pneumothorax following left chest tube removal. Electronically signed by: Eduardo Barr MD 05/15/2018 1:00 PM EDT
[2018-05-15] MEDS: Ciprofloxacin 500 MG Tablet PO SCH (13:08)
--- NOTE | 2018-05-15 15:03 | P.PN ---
Physical Exam Vital signs: Vital Signs 05/14/18 15:00 05/14/18 16:00 05/14/18 17:00 Temperature 97.8 F Pulse Rate 69 68 69 Respiratory Rate 17 Blood Pressure 107/65 Pulse Oximetry 05/14/18 18:00 05/14/18 19:00 05/14/18 20:00 Temperature 99.7 F H Pulse Rate 69 70 70 Respiratory Rate 20 Blood Pressure 144/55 H Pulse Oximetry 94 L 05/14/18 21:55 05/14/18 23:00 05/15/18 00:00 Temperature 98.1 F Pulse Rate 70 70 Respiratory Rate 20 20 Blood Pressure 117/69 Pulse Oximetry 96 05/15/18 01:00 05/15/18 02:00 05/15/18 03:00 Temperature Pulse Rate 70 68 68 Respiratory Rate Blood Pressure Pulse Oximetry 05/15/18 04:00 05/15/18 05:00 05/15/18 06:00 Temperature 98 F Pulse Rate 70 68 70 Respiratory Rate 20 Blood Pressure 111/66 Pulse Oximetry 94 L 05/15/18 07:00 05/15/18 08:00 05/15/18 09:00 Temperature 97.9 F Pulse Rate 69 70 68 Respiratory Rate 16 Blood Pressure 109/66 Pulse Oximetry 92 L 05/15/18 10:00 05/15/18 11:00 05/15/18 12:00 Temperature 97.6 F Pulse Rate 68 69 70 Respiratory Rate 16 Blood Pressure 126/74 Pulse Oximetry 97 Intake & Output 05/14/18 05/15/18 05/15/18 18:59 06:59 18:59 Intake Total 825 / 825 240 / 240 Output Total 1225 / 1225 390 / 390 Balance -400 / -400 -150 / -150 Weight 61.8 kg Intake: IV 105 / 105 Calcium Chloride Inj 0.5 GM In 105 / 105 NS Inj 100 ML @ 105 mls/hr IV. SIG ONCE ONE Rx#:[id number] Oral 720 / 720 240 / 240 Output: Urine 800 / 800 350 / 350 Chest Tube Drainage 425 / 425 40 / 40 Left Pleural 425 / 425 40 / 40 Other: Date of Last Bowel Movement 05/14/18 05/14/18 05/14/18 # Bowel Movements 1 Narrative: Subjective Interval history: Feels better. No fever or chills. No n/v/d/c. Has some chest pain at the surgical site. Some drainage after CT was removed today. dressing is changed by the nurse. Physical Exam GENERAL: Patient in bed appears in nad. CARDIOVASCULAR: Regular rate and rhythm without murmurs, gallops, or rubs. RESPIRATORY: Chest tube removed. Dressings the surgical site soaked changing by the nurse. Breath sounds equal bilaterally. No accessory muscle use. GASTROINTESTINAL: Abdomen soft, non-tender, nondistended. MUSCULOSKELETAL: No cyanosis, or edema. BACK: Nontender without obvious deformity. No CVA tenderness. Assessment and Plan Near syncope, dizziness, suspect due to orthostatic hypotension, and pacemaker malfunction Cardiomyopathy CHF Severe Left Ventricular Dysfunction Previous CABG Troponin 0.02 -Orthostatic BP orderedunremarkable -Consult cardiology, Dr. Aparicio -Serial troponin and EKGs -Request records from [facility] - Pacemaker interrogated. - Evaluated by Dr Aparicio and had EP studies -Consult CTS for lead placement PROCEDURES by Dr Mike CABALLERO on 05/12/18 1. Left Lateral Mini-Thoracotomy 2. Epicardial Left Ventricular Lead Placement 3. Lysis of Myocardial Adhesions 4. Intercostal nerve Block. CT removed on 05/15. Acute kidney injury, suspect due to dehydration -IVF for hydration, monitor for fluid overload -Trend creatinine = Patient reportedly on ibuprofen 600 mg every 6 hours. Will discontinue. Hypertension, chronic, currently hypotensive -Hold all home medications for hypertension once med rec is updated -Monitor vitals =continue medications as appropriate. Monitor and adjust meds as indicated Depression. Due to patient's complaint of lightheadedness, and its appearance of somnolence. Will decrease dose of trazodone. Hypocalcemia. Monitor and replace DVT prophylaxis: Heparin SQ Discussed Condition With: Patient, family at bedside, nurse, Dr. Mckeon CTS Discharge Planning: PT evaluation. Pending improvement and clearance by consultants. Discussed with Dr. Mckeon cardiothoracic surgeon possible discharge tomorrow if less output from chest tube. - Urinary Catheter Management Indwelling Urethral Catheter Cath placed during this visit: yes, but has since been removed by the nurse Reason for continuing: Other continuation reason Insertion date: 05/12/18 Insertion time: 07:45 Removal time: 15:30 Results - Labs CBC & Chem 7: 05/12/18 10:24 05/12/18 10:24 Laboratory Results - last 24 hr 05/14/18 05/14/18 15:50 15:50 Phosphorus 3.4 Magnesium 1.9 Iron 25 L TIBC 211 L % Saturation 11.8 L Ferritin 86 Vitamin B12 1573 H Folate 10.5 Microbiology 05/12/18 08:45 Fluid - Other Gram Stain - Final 05/12/18 08:45 Fluid - Other Wound Culture - Final No growth in 72 hours (aerobically and anaerobically ) 05/12/18 08:45 Other Acid Fast Bacilli Smear - Final No acid fast bacilli seen - Imaging Impressions Chest X-Ray 05/15/18 12:00 CONCLUSION: No pneumothorax following left chest tube removal. - Procedures 1. Cardiomyopathy 2. CHF 3. Severe Left Ventricular Dysfunction 4. Previous CABG PROCEDURES by Dr Mike CABALLERO on 05/12/18 1. Left Lateral Mini-Thoracotomy 2. Epicardial Left Ventricular Lead Placement 3. Lysis of Myocardial Adhesions 4. Intercostal nerve Block. Assessment and Plan - Assessment (1) Near syncope Code(s): R55 - Syncope and collapse Status: Acute (2) Dizziness Code(s): R42 - Dizziness and giddiness Status: Acute
[2018-05-15 16:58] VITALS: BP 101/66; RESP 18; TEMP 98.1; O2SAT 95
[2018-05-15 17:14] LABS: Baso % (Auto) 0.8 % (0.0-2.0); Eos # (Auto) 0.2 th/mm3 (0.0-0.4); Eos % (Auto) 4.2 % (0.0-4.0); Hematocrit 26.7 % (39.0-51.0); Hemoglobin 9.2 gm/dL (13.0-17.0); Lymph # (Auto) 0.5 th/mm3 (1.0-4.8); Mean Corpuscular HGB Conc 34.6 % (32.0-36.0); Mean Corpuscular Hemoglobin 34.4 pg (27.0-34.0); Mean Corpuscular Volume 99.4 fL (80.0-100.0); Mean Platelet Volume 7.9 fL (7.0-11.0); Mono # (Auto) 0.3 th/mm3 (0.0-0.9); Neut # (Auto) 4.2 th/mm3 (1.8-7.7); Platelet Count 163 th/mm3 (150-450); Red Blood Count 2.69 mil/mm3 (4.50-5.90); Red Cell Distribution Width 15.3 % (11.6-17.2); White Blood Count 5.3 th/mm3 (4.0-11.0)
[2018-05-15 17:43] LABS: Calcium 7.4 mg/dL (8.5-10.1); Carbon Dioxide 27.5 meq/L (21.0-32.0); Potassium 4.5 meq/L (3.5-5.1)
[2018-05-15 18:05] LABS: Total Protein 5.4 g/dL (6.4-8.2)
[2018-05-15 20:08] VITALS: PULSE 68
--- NOTE | 2018-06-11 12:25 | MP ---
cc: Joyce Aparicio MD DATE OF OPERATION: 05/10/2018 PROCEDURES: Atrial defibrillator removal and biventricular pacer defibrillator insertion, LV lead insertion. Discontinue LV lead insertion region. INDICATIONS FOR PROCEDURE: Mr. Campos is an 82-year-old gentleman with congestive heart failure, coronary artery disease, and cardiomyopathy, with hospitalization and optimal medical treatment. The patient's ejection fraction was within 15-18%, RV pacing 100% of the time. He is for upgrade of defibrillator to a biventricular pacer defibrillator. The risks, the nature, and the benefits of the procedure were thoroughly explained to him. The risks include pneumothorax, cardiac perforation, stroke, need for open heart surgery, and even . The patient understood and agreed to proceed. PROCEDURE IN DETAIL: After informed consent was obtained, the patient was brought to the EP lab, where he was prepped and draped in the usual sterile fashion. Conscious sedation was initiated and maintained throughout the procedure by the anesthesiologist. Once sedation was verified, the left infraclavicular area was anesthetized with 2% Xylocaine. Using a #11 blade scalpel, a 3-cm incision was made over the generator. Incision was taken down to the deep fascial layer using Bovie cautery and blunt dissection. Once exposed generator was removed from the pocket, scar tissue was removed from around the lead. Pocket was expanded. Pocket revision was performed. Then, using modified Seldinger technique, the left subclavian vein was cannulated on one occasion and 1 guidewire was advanced. A 2-0 Vicryl suture was placed around the wire to prevent backbleeding. At this point, over the wire, a 9-Finnish dilator and introducer were advanced. The dilator and wire were removed. A CS cannulation sheath was advanced through the sheath. A quadripolar steerable catheter was advanced. After multiple attempts, the coronary sinus was cannulated. CS venography showed only a small lateral branch. After multiple attempts, the coronary sinus was cannulated, and the lead was advanced over the wire. Pacing threshold was very high. in multiple locations. Then, great cardiac vein branch was cannulated. At that point, diaphragmatic stimulation. After multiple attempts, I decided to discontinue the procedure. The LV lead was removed. The pocket was copiously irrigated with antibiotic solution. The defibrillator generator was removed and replaced by biventricular pacer defibrillator. The LV lead port was plugged. The patient was to be referred for epicardial lead. This was a very difficult and complex case . The patient tolerated the procedure. Blood loss minimal. 1. Explanted hardware: The explanted defibrillator generator is a [employer]tronic , serial #[id number] . 2. Implanted hardware: The implanted biventricular pacer defibrillator is a Medtronic model #[id number] . 3. Implanted Med[employer]onic serial # [id number]. 4. Threshold: The right atrial pacing threshold in bipolar mode was 1 volt at 0.5 milliseconds, lead impedance 300 ohms, P-wave at 1.8 millivolts. The right ventricular pacing threshold in bipolar mode was 1.5 with 5 millisecond lead impedance 4:36 ohms. R-wave could not be measured. Patient basically 5. Settings: The device was set in the DDD 60, upper rate limit 120 beats per minute. Device will be reset LV first by 40 milliseconds inserted. CONCLUSION: Successful biventricular pacer defibrillator insertion, defibrillator removal, LV lead insertion and removal because of poor capture. RECOMMENDATIONS: As mentioned before, patient will be referred for epicardial lead insertion. MD KEVIN Lee/quincy/brayden , 09:36 AM , 09:48 AM
== END 2018-05-15 19:52 | disposition home health service (06) ==
LOC: NEDA 15:14 → NEPC 15:14 → NEDA 05-09 01:33 → NEPFCDU 05-09 16:21 → HCIS 05-10 16:36
PROVIDERS: ADMIT Hospitalist; ATTEND Hospitalist
PROC: [UNRECOGNIZED PROCEDURE] (2018-05-12 07:32)
PROC: THOCTMY (2018-05-12 07:32)